=== PATIENT | female | born 1940 | race African-American/Black ===

== ENCOUNTER 2016-04-14 22:11 | Emergency (ER) | payer OTHER, MEDICARE ==
[2016-04-14 22:18] VITALS: TEMP 97.5; BMI 25.4
--- NOTE | 2016-04-14 22:23 | PDOC ---
History of Present Illness - General Exam Limitations: No Limitations - History of Present Illness Initial Comments: 04/14/16 23:17 The patient is a 75-year-old female, with a significant past medical history of HTN, who presents to the ED with HTN who presents to the ED with elevated BP levels. Patient is currently taking metoprolol and measured her BP today to be approximately 200/100. She does report experiencing dizziness and a headache. Pt does not measure her BP regularly. She last saw her PCP about 6 months ago for BP issues and her metoprolol dosage was increased. The patient denies any fever, chills, nausea, vomiting, diarrhea, abdominal pain , shortness of breath, or chest pain. <Irma Emery - Last Filed: 04/14/16 23:19> <Irene Fatima - Last Filed: 04/15/16 03:05> - General History Source: Patient Exam Limitations: No Limitations <oTna Roman - Last Filed: 04/15/16 03:33> - General Chief Complaint: Blood Pressure Problem Stated Complaint: BP PROBLEM Time Seen by Provider: 04/14/16 22:22 Past History <Irma Emery - Last Filed: 04/14/16 23:19> <Irene Fatima - Last Filed: 04/15/16 03:05> - Past Medical History Anemia: No Asthma: No Cardiac Disorders: Yes HTN: Yes Hypercholesterolemia: Yes - Surgical History Abdominal Surgery: Yes ([facility]) Orthopedic Surgery: No - Psycho/Social/Smoking Cessation Hx Anxiety: No Suicidal Ideation: No Smoking Status: No Smoking History: Never smoked Have you smoked in the past 12 months: No Number of Cigarettes Smoked Daily: 0 Information on smoking cessation initiated: No Hx Alcohol Use: No Drug/Substance Use Hx: No Substance Use Type: None Hx Substance Use Treatment: No <Tona Roman - Last Filed: 04/15/16 03:33> - Past Medical History Allergies/Adverse Reactions: Allergies Allergy/AdvReac Type Severity Reaction Status Date / Time No Known Drug Allergies Allergy Verified 04/14/16 22:14 Home Medications: Ambulatory Orders Aspirin Coated [Ecotrin -] 81 mg PO DAILY 03/19/12 Metoprolol Tartrate [Lopressor -] 25 mg PO BID 03/19/12 Simvastatin [Zocor -] 20 mg PO HS 04/14/16 Review of Systems - Review of Systems Able to Perform ROS?: Yes Comments:: 04/14/16 23:18 GENERAL/CONSTITUTIONAL: No: fever, chills, weakness, loss of appetite. HEAD, EYES, EARS, NOSE AND THROAT: No: change in vision, ear pain, discharge, sore throat, throat swelling. CARDIOVASCULAR: No: chest pain, lightheadedness, palpitations, syncope RESPIRATORY: No: cough, shortness of breath, wheezing, hemoptysis, stridor. GASTROINTESTINAL: No: nausea, vomiting, abdominal cramping, diarrhea, rectal bleeding, constipation. GENITOURINARY: No: dysuria, hematuria, frequency, urgency, flank pain. MUSCULOSKELETAL: No: back pain, neck pain, joint pain, muscle swelling or pain SKIN AND BREASTS: No: lesions, pallor, rash or easy bruising. NEUROLOGIC: No: vertigo, paresthesias, weakness. Yes: dizziness, headache ENDOCRINE: No: unexplained weight gain or loss HEMATOLOGIC/LYMPHATIC: No: anemia, easy bleeding, swelling nodes <Irma Emery - Last Filed: 04/14/16 23:19> *Physical Exam - Vital Signs Last Vital Signs Temp Pulse Resp BP Pulse Ox 97.5 F L 74 14 197/113 97 04/14/16 22:16 04/14/16 22:16 04/14/16 22:16 04/14/16 22:16 04/14/16 22:16 - Physical Exam Comments: 04/14/16 23:18 GENERAL: The patient is in no acute distress. HEAD: Normal with no signs of trauma. EYES: PERRLA, EOMI, sclera anicteric, conjunctiva clear. ENT: Ears normal, nares patent, oropharynx clear without exudates. Moist mucous membranes. NECK: Normal range of motion, supple without lymphadenopathy, JVD, or masses. LUNGS: Breath sounds equal, clear to auscultation bilaterally. No wheezes, and no crackles. HEART:Regular rate and rhythm, normal S1 and S2 without murmur, rub or gallop. ABDOMEN: Soft, nontender, normoactive bowel sounds. No guarding, no rebound. EXTREMITIES: Normal range of motion, no edema. No clubbing or cyanosis. No erythema, or tenderness. NEUROLOGICAL: Cranial nerves II through XII grossly intact. Normal speech. No focal neurological deficits. MUSCULOSKELETAL: Back non-tender to palpation, no CVA tenderness SKIN: Warm, Dry, normal turgor, no rashes or lesions noted. <Irma Emery - Last Filed: 04/14/16 23:19> - Vital Signs Last Vital Signs Temp Pulse Resp BP Pulse Ox 97.5 F L 60 18 196/106 100 04/14/16 22:16 04/15/16 01:37 04/15/16 01:37 04/15/16 01:37 04/15/16 01:37 <Irene Fatima - Last Filed: 04/15/16 03:05> - Vital Signs Last Vital Signs Temp Pulse Resp BP Pulse Ox 97.5 F L 74 14 197/113 97 04/14/16 22:16 04/14/16 22:16 04/14/16 22:16 04/14/16 22:16 04/14/16 22:16 <Tona Roman - Last Filed: 04/15/16 03:33> Heart Score/ECG Review #1 ECG reviewed & interpreted by me at: 02:04 04/15/16 02:04 Twelve-lead EKG was performed and reviewed by me. There is normal sinus rhythm with a normal rate of 58 bpm. The axis is normal. The intervals are normal - pr: 142ms, QRS: 116ms, QTc:451ms. There are no ST elevations or depressions. T wave inversion v4- v6 <Tona Roman - Last Filed: 04/15/16 03:33> ED Treatment Course - LABORATORY CBC & Chemistry Diagram: 04/15/16 00:45 04/15/16 00:45 - ADDITIONAL ORDERS Additional order review: Laboratory Results 04/15/16 00:45 Sodium 141 Potassium 4.0 Chloride 103 Carbon Dioxide 30 Anion Gap 8 BUN 10 Creatinine 0.7 Creat Clearance w eGFR > 60 Random Glucose 113 H Calcium 8.9 Total Bilirubin 0.4 D AST 24 D ALT 25 Alkaline Phosphatase 110 D Creatine Kinase 91 Troponin I < 0.02 Total Protein 7.5 Albumin 3.7 04/15/16 00:45 RBC 4.40 MCV 88.9 MCHC 32.4 RDW 14.8 MPV 9.5 Neutrophils % 65.3 D Lymphocytes % 24.8 D Monocytes % 9.1 Eosinophils % 0.2 Basophils % 0.6 - Medications Given in the ED: ED Medications Discontinued Medications Generic Name Dose Route Start Last Admin Trade Name Shavon PRN Reason Stop Dose Admin Labetalol HCl 10 mg 04/15/16 00:09 04/15/16 01:36 Normodyne Injection - IVPUSH 04/15/16 00:10 10 mg ONCE ONE Administration <Irene Fatima - Last Filed: 04/15/16 03:05> - LABORATORY CBC & Chemistry Diagram: 04/15/16 00:45 04/15/16 00:45 <Tona Roman - Last Filed: 04/15/16 03:33> Medical Decision Making - Medical Decision Making 04/15/16 03:05 THIS IS A PRELIMINARYREPORT FROM IMAGING TAX INVESTIGATOR EXAM: CT brain without contrast IMAGES: 70 INDICATION: Hypertensive urgency. Dizziness. DATE OF SERVICE: 2016-04-15 02:45:15.0 COMPARISON: none FINDINGS: The ventricular system is midline and nondilated. Mild cortical atrophy is noted with minimal small vessel ischemic disease. 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 There is no bleed, mass, extra-axial fluid collection or mass effect. No skull fracture or skull lesion is identified. The visualized paranasal sinuses and mastoid air cells are clear. IMPRESSION: No evidence of acute pathology. THIS DOCUMENT HAS BEEN ELECTRONICALLY SIGNED <FatimaIrene - Last Filed: 04/15/16 03:05> - Medical Decision Making 04/14/16 22:23 A portion of this note was documented by scribe services under my direction. I have reviewed the details of the note, within reason, and agree with the documentation with the following case summary and management plan written by me. Nursing documentation reviewed and incorporated into medical decision making 04/15/16 00:51 this is a 75 yo F with a history of HTN who presents to the ER with a complaint of elevated BP Pt states she checked her blood pressure this afternoon after getting up from the dining room table, she noted that she was dizzy (not vertiginous) She took her blood pressure and noted that it was elevated No chest pain no palpitations No shortness of breath No focal weakness or numbness Pt does not often check her blood pressure so is not sure of her range Typically she take Metoprolol 50mg in the morning and 25 in the evening She took an additional dose of metoprolol this evening 04/15/16 00:56 BP 190s-200s HR nml Will evaluate labs Will do CT head Will re assess 04/15/16 01:25 04/15/16 03:30 Laboratory Tests 04/15/16 04/15/16 00:45 00:45 WBC 4.2 D Hgb 12.7 Hct 39.1 Plt Count 164 Neutrophils % 65.3 D Lymphocytes % 24.8 D BUN 10 Creatinine 0.7 Random Glucose 113 H Creatine Kinase 91 Troponin I < 0.02 Pt remains hypertensive s/p Labetolol Pt CT performed Pt signed out to Dr Fatima pending improved BP PMD Fresnetta if pt needs to be admitted clinical impression: hypertension <Tona Roman - Last Filed: 04/15/16 03:33> *DC/Admit/Observation/Transfer - Attestations Scribe Attestion: 04/14/16 23:19 Documentation prepared by Irma Emery, acting as medical and scientific illustrator for Tona Roman MD. <Irma Emery - Last Filed: 04/14/16 23:19> <Irene Fatima - Last Filed: 04/15/16 03:05> - Discharge Dispostion Admit: No <Tona Roman - Last Filed: 04/15/16 03:33> Diagnosis at time of Disposition: Hypertensive urgency - Discharge Dispostion Condition at time of disposition: Stable - Patient Instructions Printed Discharge Instructions: DI for High Blood Pressure, How to Monitor Your Blood Pressure at Home Additional Instructions: Sahil Thank you for coming in to the ER today Please take medications as prescribed you must follow up with your primary care physician in 1-2 business days Return to the Er for any other concerns or complaints
[2016-04-15] MEDS ORDERED: LABETALOL HCL 5 MG/1 ML (100MG/20 ML VIAL) IVPUSH ONE (00:09)
[2016-04-15] MEDS ORDERED: LABETALOL HCL 5 MG/1 ML (200MG/40ML VIAL) IVPB ONE (01:31)
[2016-04-15 01:39] VITALS: PULSE 60
[2016-04-15 01:58] LABS: BASOPHIL 0.6 % (0-2.0); EOSINOPHIL 0.2 % (0-4.5); MCH 28.8 pg (25.7-33.7); MCHC 32.4 g/dl (32.0-36.0); MEAN CELL VOLUME 88.9 fl (80-96); MEAN PLT VOLUME 9.5 fl (7.5-11.1); NEUTROPHILS 65.3 % (42.8-82.8); PLATELET COUNT 164 K/MM3 (134-434); RDW 14.8 % (11.6-15.6); WHITE BLOOD COUNT 4.2 K/mm3 (4.0-10.0)
[2016-04-15 02:52] LABS: ALBUMIN 3.7 g/dl (3.4-5.0); ANION GAP 8 (8-16); CALCIUM 8.9 mg/dL (8.5-10.1); CO2 30 mmol/L (21-32); CREATININE 0.7 mg/dL (0.55-1.02); GLUCOSE,RANDOM 113 mg/dL (74-106); SGOT/AST 24 U/L (15-37); SGPT/ALT 25 U/L (12-78)
[2016-04-15 02:56] LABS: ALK PHOS 110 U/L (45-117); BILIRUBIN,TOTAL 0.4 mg/dL (0.2-1.0); TOT PROT 7.5 g/dl (6.4-8.2); TROPONIN I < 0.02 ng/ml (0.00-0.05)
[2016-04-15] MEDS ORDERED: VALSARTAN 80 MG TABLET (UD) PO ONE (03:02)
[2016-04-15] MEDS ORDERED: VALSARTAN 80 MG TABLET (UD) ONE (03:42)
[2016-04-15 03:48] VITALS: BP 176/101
--- NOTE | 2016-04-16 12:20 | EKG ---
Test Reason : Blood Pressure : / mmHG Vent. Rate : 058 BPM Atrial Rate : 058 BPM P-R Int : 142 ms QRS Dur : 116 ms QT Int : 460 ms P-R-T Axes : 056 017 131 degrees QTc Int : 451 ms SINUS BRADYCARDIA POSSIBLE LEFT ATRIAL ENLARGEMENT LEFT VENTRICULAR HYPERTROPHY WITH QRS WIDENING AND REPOLARIZATION ABNORMALITY ABNORMAL ECG WHEN COMPARED WITH ECG OF 25-JAN-2013 09:07, RIGHT BUNDLE BRANCH BLOCK IS NO LONGER PRESENT Confirmed by KODAK JOHNSON MD ([id number]) on 04/16/2016 12:19:43 PM Referred By: Confirmed By:KODAK JOHNSON MD
== END 2016-04-15 04:28 | disposition home or self-care (01) ==
LOC: JER 22:11
PROC: 3E033GC Introduction of Other Therapeutic Substance into Peripheral Vein, Percutaneous Approach (ICD-10-PCS; principal; 2016-04-14)
DX: I16.0 Hypertensive urgency (principal)
CPT/HCPCS: 36415; 70450-TC; 80053; 82550; 84484; 85025; 93005; 93010; 96374; 99283-25

== ENCOUNTER 2017-12-04 18:03 | Emergency (ER) | payer OTHER, MEDICARE ==
[2017-12-04 18:11] VITALS: TEMP 98.4; BMI 24.4
--- NOTE | 2017-12-04 18:16 | PDOC ---
Rapid Medical Evaluation Chief Complaint: Chest Pain Time Seen by Provider: 12/04/17 18:09 Medical Evaluation: Allergies Allergy/AdvReac Type Severity Reaction Status Date / Time No Known Drug Allergies Allergy Verified 10/01/17 09:52 12/04/17 18:09 I have performed a brief in-person evaluation of this patient. The patient presents with a chief complaint of:intermittent chest pain to the left arm all day. Pt has history of same. negative stress test in the past by . Pt took one BASA this am and 2 tylenol. Pertinent physical exam findings:none I have ordered the following:EKG, cbc , cmet, trop, cpk The patient will proceed to the ED for further evaluation. 12/04/17 18:12
[2017-12-04 19:45] LABS: HEMATOCRIT 36.7 % (32.4-45.2); HEMOGLOBIN 11.8 GM/dL (10.7-15.3); MCHC 32.2 g/dl (32.0-36.0); MEAN PLT VOLUME 10.3 fl (7.5-11.1); PLATELET COUNT 163 K/MM3 (134-434); RBC 4.22 M/mm3 (3.60-5.2); RDW 15.1 % (11.6-15.6); WHITE BLOOD COUNT 4.1 K/mm3 (4.0-10.0)
[2017-12-04] MEDS ORDERED: ASPIRIN 81 MG CHEWABLE TABLETS PO ONE (19:52)
[2017-12-04] MEDS ORDERED: ASPIRIN 81 MG CHEWABLE TABLETS ONE (19:59)
--- NOTE | 2017-12-04 20:19 | PDOC ---
History of Present Illness - General Chief Complaint: Chest Pain Stated Complaint: CHEST PAIN Time Seen by Provider: 12/04/17 18:09 History Source: Patient - History of Present Illness Initial Comments: 12/04/17 20:00 77 year old female c/o left sided chest pain radiating to left arm for one day. patient reports slight relief in pain after tylenol however pain persisted after dose. denies diaphoresis, nausea, vomiting, dizziness, abdominal pain, vomiting, fever. . Past History - Past Medical History Allergies/Adverse Reactions: Allergies Allergy/AdvReac Type Severity Reaction Status Date / Time No Known Drug Allergies Allergy Verified 12/04/17 18:11 Home Medications: Ambulatory Orders Aspirin Coated [Ecotrin -] 81 mg PO DAILY 03/19/12 Metoprolol Tartrate [Lopressor -] 25 mg PO BID 03/19/12 Simvastatin [Zocor -] 20 mg PO HS 04/14/16 Anemia: No Asthma: No Cancer: Yes (Endometrial 2012) Cardiac Disorders: Yes COPD: No CHF: No HTN: Yes Hypercholesterolemia: Yes - Surgical History Abdominal Surgery: Yes ([facility]) Orthopedic Surgery: No - Suicide/Smoking/Psychosocial Hx Smoking Status: No Smoking History: Never smoked Have you smoked in the past 12 months: No Number of Cigarettes Smoked Daily: 0 Information on smoking cessation initiated: Yes Hx Alcohol Use: No Drug/Substance Use Hx: No Substance Use Type: None Hx Substance Use Treatment: No Review of Systems - Review of Systems Able to Perform ROS?: Yes Is the patient limited Hungarian proficient: No Constitutional: No: Symptoms Reported, See HPI, Chills, Diaphoresis, Fever, Loss of Appetite, Malaise, Night Sweats, Weakness, Weight Stable, Unintentional Wgt. Loss, Unexplained wgt Loss, Other HEENTM: No: Symptoms Reported, See HPI, Eye Pain, Blurred Vision, Tearing, Recent change in vision, Double Vision, Cataracts, Ear Pain, Ocular Prothesis, Ear Discharge, Nose Pain, Nose Congestion, Tinnitus, Nose Bleeding, Hearing Loss , Throat Pain, Throat Swelling, Mouth Pain, Dental Problems, Difficulty Swallowing, Mouth Swelling, Other Respiratory: No: Symptoms reported, See HPI, Cough, Orthopnea, Shortness of Breath, SOB with Exertion, SOB at Rest, Stridor, Wheezing, Productive cough, Hemoptysis, Other Cardiac (ROS): Yes: Chest Pain. No: Symptoms Reported, See HPI, Edema, Irregular Heart Rate, Lightheadedness, Palpitations, Syncope, Chest Tightness, Other ABD/GI: No: Symptoms Reported, See HPI, Abdominal Distended, Abd. Pain w/ defecation, Blood Streaked Bowels, Constipated, Diarrhea, Difficulty Swallowing , Nausea, Poor Appetite, Poor Fluid Intake, Rectal Bleeding, Vomiting, Indigestion, Abdominal cramping, Tarry Stools, Other *Physical Exam - Vital Signs Last Vital Signs Temp Pulse Resp BP Pulse Ox 98.4 F 75 17 161/80 98 12/04/17 18:09 12/04/17 18:09 12/04/17 18:09 12/04/17 18:09 12/04/17 18:09 - Physical Exam General Appearance: Yes: Appropriately Dressed Respiratory/Chest: positive: Lungs Clear, Normal Breath Sounds Cardiovascular: positive: Regular Rhythm, Regular Rate Gastrointestinal/Abdominal: positive: Normal Bowel Sounds, Soft Extremity: positive: Normal Capillary Refill, Normal Inspection, Normal Range of Motion Integumentary: positive: Normal Color, Dry, Warm Neurologic: positive: Fully Oriented, Alert, Normal Mood/Affect ED Treatment Course - LABORATORY CBC & Chemistry Diagram: 12/04/17 19:29 12/04/17 19:29 - ADDITIONAL ORDERS Additional order review: 12/04/17 19:29 RBC 4.22 MCV 87.0 MCHC 32.2 RDW 15.1 MPV 10.3 - RADIOLOGY Radiology Studies Ordered: Category Date Time Status CHEST PA & LAT [RAD] Stat Radiology 12/04/17 19:52 Ordered Medical Decision Making - Medical Decision Making 12/04/17 22:[address] gill at bedside. request discharge to home. patient to follow up with Dr. Elias in the morning in the office. *DC/Admit/Observation/Transfer Diagnosis at time of Disposition: Chest pain at rest - Discharge Dispostion Disposition: HOME - Referrals Referrals: Lauri Elias [Primary Care Provider] - - Patient Instructions Printed Discharge Instructions: DI for Chest Pain Additional Instructions: please follow up with Dr. Elias tomorrow. return to the ER for any worsening symptoms. - Post Discharge Activity
[2017-12-04 21:33] LABS: ALBUMIN 3.6 g/dl (3.4-5.0); ALK PHOS 103 U/L (45-117); ANION GAP 8 MMOL/L (8-16); BILIRUBIN,TOTAL 0.3 mg/dL (0.2-1); BLOOD UREA NITROGEN 12 mg/dL (7-18); CALCIUM 8.8 mg/dL (8.5-10.1); CHLORIDE 107 mmol/L (98-107); CO2 27 mmol/L (21-32); CREATININE 0.8 mg/dL (0.55-1.3); GLUCOSE,RANDOM 94 mg/dL (74-106); POTASSIUM 4.6 mmol/L (3.5-5.1); SGOT/AST 23 U/L (15-37); SGPT/ALT 38 U/L (13-61); SODIUM 142 mmol/L (136-145); TOT PROT 7.7 g/dl (6.4-8.2)
--- NOTE | 2017-12-04 23:30 | PN ---
Progress Note (short form) - Note Progress Note: Patioent seen an dexamined in ER at bed side Case reviewed with CAR CARDER 77 year old female reports episode of chest pain described as stabbing / at time included left arm / no diaphoresis / N /V/ epigastric discomfort. Pain is non radiating / not associated with meals or activity. Pateint was seen by Cardio approx 2 weeks ago, work up at that time -echo / stress/ ekg all with out significant changes and negative for ischemia. Patient was examined at ER. At time of exam pain free - no treatment was given for pain relieve Chest pain not reproducible neck supple heart S1.S2 lungs clear bilat abd soft non tender CBC, BMP 12/04/17 19:29 12/04/17 19:29 Troponin, BNP 12/04/17 19:29 Troponin I < 0.02 assmt Atypical chest pain doubt cardiac in origin - OK to d/c patient home She will follow up at offic ein am -- repaeat EKG in am will also recommend cardiac follow up and consider GI work up for pain Patient dicharged for ER
[2017-12-04 23:32] VITALS: BP 142/62; PULSE 66
--- NOTE | 2017-12-05 22:02 | EKG ---
Test Reason : Blood Pressure : / mmHG Vent. Rate : 067 BPM Atrial Rate : 067 BPM P-R Int : 136 ms QRS Dur : 114 ms QT Int : 414 ms P-R-T Axes : 057 039 084 degrees QTc Int : 437 ms POOR DATA QUALITY, INTERPRETATION MAY BE ADVERSELY AFFECTED NORMAL SINUS RHYTHM POSSIBLE LEFT ATRIAL ENLARGEMENT INCOMPLETE RIGHT BUNDLE BRANCH BLOCK LEFT VENTRICULAR HYPERTROPHY WITH REPOLARIZATION ABNORMALITY ABNORMAL ECG WHEN COMPARED WITH ECG OF 01-OCT-2017 10:34, PREMATURE ATRIAL COMPLEXES ARE NO LONGER PRESENT Confirmed by CARRIE SINGH MD ([id number]) on 12/05/2017 10:02:46 PM Referred By: Confirmed By:CARRIE SINGH MD
== END 2017-12-04 23:32 | disposition home or self-care (01) ==
LOC: JER 18:03
DX: R07.9 Chest pain, unspecified (principal); I10 Essential (primary) hypertension; E78.00 Pure hypercholesterolemia, unspecified; Z85.44 Personal history of malignant neoplasm of other female genital organs
CPT/HCPCS: 36415; 71046-TC-FY; 80053; 82550; 84484; 85027; 93005; 93010; 99283-25

== ENCOUNTER 2018-04-11 07:17 | Observation (INO) | payer OTHER, MEDICARE ==
--- NOTE | 2018-04-11 07:43 | PDOC ---
History of Present Illness - General Chief Complaint: Nausea/Vomiting Stated Complaint: HTN History Source: Patient Exam Limitations: No Limitations - History of Present Illness Initial Comments: 77 yo F with a hx of HTN, HLD, endometrial cancer s/p hysterectomy KAMI presents to the emergency department with room spinning sensation. She states she had sudden onset, lasted minutes, worsened with movement, and terminated with rest on Saturday night without previous episodes in the past. She states concurrently her blood pressure was in the SBP 210s. On , she was asymptomatic [place]. Last night at 2 am, she awoke and had room spinning sensation with her SBP at 180s and was subsequently given nitro SL. Per the patient, she denies having the following symptoms during these episodes: fever, chills, nausea, vomiting, chest pain, SOB, palpitations, ears/nose/throat pain. Denies recent URI and head trauma. Shx: hysterectomy Meds: metoprolol, simvastatin, and aspirin 81 mg Allergies: NKDA Social: Denies tobacco, alcohol, and substance abuse Past History - Past Medical History Allergies/Adverse Reactions: Allergies Allergy/AdvReac Type Severity Reaction Status Date / Time No Known Drug Allergies Allergy Verified 12/04/17 18:11 Home Medications: Ambulatory Orders Aspirin Coated [Ecotrin -] 81 mg PO DAILY 03/19/12 Metoprolol Tartrate [Lopressor -] 25 mg PO BID 03/19/12 Simvastatin [Zocor -] 20 mg PO HS 04/14/16 Anemia: No Asthma: No Cancer: Yes (Endometrial 2012) Cardiac Disorders: Yes COPD: No CHF: No HTN: Yes Hypercholesterolemia: Yes - Surgical History Abdominal Surgery: Yes ([facility]) Orthopedic Surgery: No - Suicide/Smoking/Psychosocial Hx Smoking Status: No Smoking History: Never smoked Have you smoked in the past 12 months: No Number of Cigarettes Smoked Daily: 0 Hx Alcohol Use: No Drug/Substance Use Hx: No Substance Use Type: None Hx Substance Use Treatment: No Review of Systems - Review of Systems Able to Perform ROS?: Yes Is the patient limited Cypriot proficient: No Constitutional: No: Chills, Diaphoresis, Fever, Weakness HEENTM: No: Blurred Vision, Recent change in vision, Nose Pain, Nose Congestion , Throat Pain, Mouth Pain Respiratory: No: Cough, Shortness of Breath, Hemoptysis Cardiac (ROS): No: Chest Pain, Lightheadedness, Palpitations, Syncope, Chest Tightness ABD/GI: No: Constipated, Diarrhea, Nausea, Rectal Bleeding, Vomiting, Tarry Stools : No: Burning, Dysuria, Hematuria Musculoskeletal: No: Back Pain, Joint Pain, Neck Pain Integumentary: No: Bruising, Dryness, Rash Neurological: Yes: Dizziness. No: Headache, Numbness, Tingling, Ataxia Psychiatric: No: Change in Appetite Endocrine: No: Unexplained Weight Gain Hematologic/Lymphatic: No: Anemia *Physical Exam - Physical Exam General Appearance: Yes: Nourished, Appropriately Dressed. No: Apparent Distress, Intoxicated HEENT: positive: EOMI, LEESA, Normal Voice, Symmetrical, Pharynx Normal, Hearing Grossly Normal. negative: Pale Conjunctivae, Scleral Icterus (R), Scleral Icterus (L), Muffled/Hoarse voice, Pharyngeal Erythema, Tonsillar Exudate, Tonsillar Erythema, Nasal Congestion, Rhinorrhea, Excessive drooling Neck: positive: Trachea midline, Supple. negative: Tender, Lymphadenopathy (R) , Lymphadenopathy (L), Tender lateral, Tender midline Respiratory/Chest: positive: Lungs Clear, Normal Breath Sounds. negative: Chest Tender, Respiratory Distress, Accessory Muscle Use, Crackles, Rales, Rhonchi, Stridor, Wheezing Cardiovascular: positive: Regular Rhythm, Regular Rate, S1, S2. negative: Systolic Murmur Gastrointestinal/Abdominal: positive: Normal Bowel Sounds, Flat, Soft. negative : Tender Lymphatic: negative: Adenopathy Musculoskeletal: positive: Normal Inspection. negative: CVA Tenderness, Vertebral Tenderness Extremity: positive: Normal Capillary Refill, Normal Inspection, Normal Range of Motion. negative: Tender Integumentary: positive: Normal Color, Dry, Warm Neurologic: positive: shipping specialist II-XII NML intact, Fully Oriented, Alert, Normal Mood/ Affect, Normal Response, Motor Strength 5/5, Other (positive levar hallpike exam) Heart Score/ECG Review - ECG Intrepretation Comment:: ventricular rate is 64 bpm, VA is 142 ms, QTc is 449 ms, QRS is 120 ms. NSR with RBBB. No ST elevations or depressions. ED Treatment Course - LABORATORY CBC & Chemistry Diagram: 04/12/18 06:45 04/12/18 06:45 Medical Decision Making - Medical Decision Making 77 yo F with a hx of HTN, HLD, endometrial cancer s/p hysterectomy BIBEM[facility] presents to the emergency department with room spinning sensation. Initial vitals; Initial Vital Signs Temp Pulse Resp BP Pulse Ox 98.2 F 76 16 121/78 97 04/11/18 07:20 04/11/18 07:20 04/11/18 07:20 04/11/18 07:20 04/11/18 07:20 Work up: ddx: likely peripheral vs central vertigo. patient has sudden onset, with termination of symptoms that worsen when she leans forward. will get head CT to rule out intracranial process. will order cbc, cmp, trops, ekg, and cxr, and ua. r/o infectious and metabolic disturbance Laboratory Tests 04/11/18 04/11/18 04/11/18 08:57 08:57 08:57 WBC 5.7 RBC 4.16 Hgb 12.1 Hct 36.3 MCV 87.2 MCH 29.1 MCHC 33.4 RDW 15.3 Plt Count 118 L D MPV 10.2 Absolute Neuts (auto) 4.5 Neutrophils % 79.4 D Neutrophils % (Manual) 70.7 Band Neutrophils % 4.0 Lymphocytes % 13.6 D Lymphocytes % (Manual) 11.1 Monocytes % 6.8 Monocytes % (Manual) 7 Eosinophils % 0.0 D Eosinophils % (Manual) 1.0 Basophils % 0.2 Basophils % (Manual) 0.0 Myelocytes % (Man) 1 Promyelocytes % (Man) 0 Blast Cells % (Manual) 0 Nucleated RBC % 0 Metamyelocytes 0 Hypochromia 0 Toxic Granulation 0 Dohle Bodies 0 Platelet Estimate Decreased Platelet Comment Present Polychromasia 0 Poikilocytosis 0 Basophilic Stippling 0 Anisocytosis 0 Microcytosis 0 Macrocytosis 0 Spherocytes 0 Sickle Cells 0 Target Cells 0 Tear Drop Cells 0 Ovalocytes 0 Stomatocytes 0 Helmet Cells 0 [place] Bodies 0 [place] Rings 0 [place] Cells 0 Acanthocytes (Spur) 0 Rouleaux 0 Fragmented RBCs 0 Schistocytes 0 Sodium 139 Potassium 4.0 Chloride 108 H Carbon Dioxide 25 Anion Gap 6 L BUN 13 Creatinine 0.6 Creat Clearance w eGFR > 60 Random Glucose 110 H Calcium 8.0 L Total Bilirubin 0.4 AST 15 ALT 19 Alkaline Phosphatase 95 Creatine Kinase 86 Troponin I < 0.02 Total Protein 7.0 Albumin 3.5 Urine Color Ltyellow Urine Appearance Clear Urine pH 6.0 Ur Specific Hale 1.014 Urine Protein Negative Urine Glucose (UA) Negative Urine Ketones Negative Urine Blood Negative Urine Nitrite Negative Urine Bilirubin Negative Urine Urobilinogen Negative Ur Leukocyte Esterase Negative labs within normal limits. head ct negative for acute process. cxr was negative for acute process. the patient was given 25 mg of meclizine which did not affect her vertigo. she had change in quality in vertigo which originally terminate on its own with rest is now constant. gave her 0.5 mg of ativan. patient still experiences vertigo with worsening severity. will admit the patient for intractable vertigo. Dispo: Admit *DC/Admit/Observation/Transfer Diagnosis at time of Disposition: Vertigo - Referrals - Patient Instructions - Post Discharge Activity
[2018-04-11] MEDS ORDERED: SODIUM CHLORIDE 1,000 ML IV STA (08:27)
[2018-04-11] MEDS ORDERED: MECLIZINE HCL 25 MG TABLET (FP) PO ONE (08:27)
[2018-04-11] MEDS ORDERED: MECLIZINE HCL 25 MG TABLET (FP) ONE (08:46)
[2018-04-11 09:17] LABS: BASO % 0.2 % (0-2.0); HEMATOCRIT 36.3 % (32.4-45.2); HEMOGLOBIN 12.1 GM/dL (10.7-15.3); LYMPH % 13.6 % (8-40); MCH 29.1 pg (25.7-33.7); MCHC 33.4 g/dl (32.0-36.0); MEAN CELL VOLUME 87.2 fl (80-96); MEAN PLT VOLUME 10.2 fl (7.5-11.1); MONO % 6.8 % (3.8-10.2); NEUT % 79.4 % (42.8-82.8); PLATELET COUNT 118 K/MM3 (134-434); RBC 4.16 M/mm3 (3.60-5.2); RDW 15.3 % (11.6-15.6); WHITE BLOOD COUNT 5.7 K/mm3 (4.0-10.0)
[2018-04-11 09:56] LABS: ALBUMIN 3.5 g/dl (3.4-5.0); ALK PHOS 95 U/L (45-117); ANION GAP 6 MMOL/L (8-16); BILIRUBIN,TOTAL 0.4 mg/dL (0.2-1); BLOOD UREA NITROGEN 13 mg/dL (7-18); CHLORIDE 108 mmol/L (98-107); CO2 25 mmol/L (21-32); CREATININE 0.6 mg/dL (0.55-1.3); GLUCOSE,RANDOM 110 mg/dL (74-106); SGOT/AST 15 U/L (15-37); SGPT/ALT 19 U/L (13-61); SODIUM 139 mmol/L (136-145)
[2018-04-11 10:02] LABS: URINE APPEARANCE CLEAR; URINE BILIRUBIN NEGATIVE (<2.0 mg/dL); URINE COLOR LTYELLOW; URINE GLUCOSE (UA) NEGATIVE (NEGATIVE); URINE KETONE NEGATIVE (NEGATIVE); URINE LEUK ESTERASE NEGATIVE (NEGATIVE); URINE NITRITE NEGATIVE (NEGATIVE); URINE PROTEIN NEGATIVE (NEGATIVE); URINE UROBILINOGEN NEGATIVE mg/dL (0.2-1.0)
[2018-04-11 10:07] LABS: ACANTHOCYTES 0; ANISOCYTOSIS 0; HELMET CELLS 0; HOWELL-JOLLY BODIES 0; MACROCYTOSIS 0; OVALOCYTE 0; PLATELET ESTIMATE DECREASED; ROULEAU 0; SICKELED CELLS 0; TARGET CELLS 0; TEAR DROP CELLS 0; TOXIC GRANULATION 0
--- NOTE | 2018-04-11 11:16 | PDOC ---
Attending Attestation - Resident Resident Name: [place] - ED Attending Attestation I have performed the following: I have examined & evaluated the patient, The case was reviewed & discussed with the resident, I agree w/resident's findings & plan, Exceptions are as noted - HPI HPI: 04/11/18 11:16 Reviewed Residents HPI - Physicial Exam PE: 04/11/18 11:16 Reviewed Residents PE - Medical Decision Making 04/11/18 11:23 77 years old past medical history significant for hypertension hyperlipidemia endometrial cancer status post hysterectomy presents to the emergency Department with three-day history of unsteady gait and room spinning. Initially when symptomatology started on Saturday it appeared to be very positional associated with standing was alleviated by lying back down. Patient would check her blood pressure during these episodes and was noted to be elevated Over the past 2 days symptoms have been progressive persistent constant mild and associated with unsteady gait. No fever no chills no headache In the emergency department patient was treated with meclizine fluids a CAT scan was performed which was negative laboratory analysis is unremarkable Reevaluation patient still with now persistent unsteady gait and room spinning given patient's age and comorbidities we'll admit to medicine to rule out central causes of unsteadiness with neurologic consultation.
[2018-04-11] MEDS ORDERED: LORazepam 2 MG/ML SDV VIAL ONE (11:57)
[2018-04-11] MEDS ORDERED: MECLIZINE HCL 25 MG TABLET (FP) PO PRN (14:01)
--- NOTE | 2018-04-11 14:03 | HP ---
Admitting History and Physical - Primary Care Physician PCP: Chanel Jett I - Admission History Source: Patient, Family Member Limitations to Obtaining History: No Limitations - Past Medical History Cardiovascular: Yes: HTN, Hyperlipdemia Heme/Onc: Yes: Other (Endometrial Ca) - Smoking History Smoking history: Never smoked Have you smoked in the past 12 months: No Aproximately how many cigarettes per day: 0 - Alcohol/Substance Use Hx Alcohol Use: No Home Medications - Allergies Allergies/Adverse Reactions: Allergies Allergy/AdvReac Type Severity Reaction Status Date / Time No Known Drug Allergies Allergy Verified 12/04/17 18:11 - Home Medications Home Medications: Ambulatory Orders Aspirin Coated [Ecotrin -] 81 mg PO DAILY 03/19/12 Metoprolol Tartrate [Lopressor -] 25 mg PO BID 03/19/12 Simvastatin [Zocor -] 20 mg PO HS 04/14/16 Review of Systems - Review of Systems Constitutional: reports: Other (Vertigo) Eyes: reports: No Symptoms HENT: reports: Nasal Congestion Neck: reports: No Symptoms Cardiovascular: reports: No Symptoms Respiratory: reports: No Symptoms Gastrointestinal: reports: No Symptoms Genitourinary: reports: No Symptoms Breasts: reports: No Symptoms Reported Musculoskeletal: reports: Muscle Weakness Integumentary: reports: No Symptoms Neurological: reports: Syncope Endocrine: reports: No Symptoms Hematology/Lymphatic: reports: No Symptoms Psychiatric: reports: No Symptoms Physical Examination Vital Signs: Vital Signs Temperature 97.9 F 04/11/18 13:00 Pulse Rate 67 04/11/18 13:00 Respiratory Rate 18 04/11/18 13:00 Blood Pressure 158/88 04/11/18 13:00 O2 Sat by Pulse Oximetry (%) 98 04/11/18 12:04 Constitutional: Yes: Well Nourished Eyes: Yes: Conjunctiva Clear HENT: Yes: Atraumatic, Normocephalic Neck: Yes: Supple, Trachea Midline Cardiovascular: Yes: Regular Rate and Rhythm Respiratory: Yes: Regular, CTA Bilaterally Gastrointestinal: Yes: Normal Bowel Sounds, Soft ...Rectal Exam: Yes: Deferred Renal/: Yes: WNL Breast(s): Yes: WNL Musculoskeletal: Yes: Muscle Weakness Extremities: Yes: WNL Edema: No Peripheral Pulses WNL: Yes Integumentary: Yes: WNL Neurological: Yes: Alert, Oriented ...Motor Strength: WNL Psychiatric: Yes: Alert, Oriented Labs: CBC, BMP 04/11/18 08:57 04/11/18 08:57 Imaging - Results Chest X-ray: Report Reviewed Cat Scan: Report Reviewed Problem List - Problems (1) Vertigo Code(s): R42 - DIZZINESS AND GIDDINESS (2) HLD (hyperlipidemia) Code(s): E78.5 - HYPERLIPIDEMIA, UNSPECIFIED (3) HTN (hypertension) Code(s): I10 - ESSENTIAL (PRIMARY) HYPERTENSION Assessment/Plan 77 y/o female placed under observation for room spinning not responding to Meclizine and elevated BP . PMhx of HTN, Endometrial Ca and HLD.
[2018-04-11 15:44] VITALS: BMI 24.5
[2018-04-11] MEDS: ACETAMINOPHEN 325 MG TABLET (FP) PO PRN (16:49)
[2018-04-11] MEDS ORDERED: ONDANSETRON 4 MG/2 ML VIAL IVPUSH PRN (19:20)
[2018-04-11] MEDS: ATORVASTATIN CA 10 MG TABLET (FP) PO SCH (21:42)
[2018-04-11] MEDS: MECLIZINE HCL 25 MG TABLET (FP) PO SCH (21:43)
[2018-04-11] MEDS: METOPROLOL TARTRATE 25 MG TABLET (FP) PO SCH (21:43)
[2018-04-12] MEDS: MECLIZINE HCL 25 MG TABLET (FP) PO SCH ×5 (02:44→18:56)
[2018-04-12 08:25] LABS: BASO % 0.4 % (0-2.0); EOS % 0.1 % (0-4.5); HEMATOCRIT 36.9 % (32.4-45.2); HEMOGLOBIN 12.3 GM/dL (10.7-15.3); LYMPH % 35.5 % (8-40); MCH 29.6 pg (25.7-33.7); MCHC 33.4 g/dl (32.0-36.0); MEAN CELL VOLUME 88.6 fl (80-96); MEAN PLT VOLUME 10.1 fl (7.5-11.1); MONO % 10.3 % (3.8-10.2); NEUT % 53.7 % (42.8-82.8); PLATELET COUNT 115 K/MM3 (134-434); RBC 4.16 M/mm3 (3.60-5.2); RDW 15.1 % (11.6-15.6); WHITE BLOOD COUNT 2.9 K/mm3 (4.0-10.0)
[2018-04-12 09:15] LABS: CHOLESTEROL 115 mg/dL (50-200); HDL CHOLESTEROL 41 mg/dL (40-60); TRIGLYCERIDES 88 mg/dL (0-150)
[2018-04-12 09:17] LABS: ANION GAP 6 MMOL/L (8-16); BLOOD UREA NITROGEN 7 mg/dL (7-18); CALCIUM 8.2 mg/dL (8.5-10.1); CHLORIDE 109 mmol/L (98-107); CO2 28 mmol/L (21-32); CREATININE 0.7 mg/dL (0.55-1.3); GLUCOSE,RANDOM 96 mg/dL (74-106); POTASSIUM 3.7 mmol/L (3.5-5.1); SODIUM 142 mmol/L (136-145)
[2018-04-12] MEDS: METOPROLOL TARTRATE 25 MG TABLET (FP) PO SCH ×2 (11:27→22:04)
[2018-04-12] MEDS: ASPIRIN COATED 81 MG TABLET.EC PO SCH (11:27)
[2018-04-12] MEDS: ACETAMINOPHEN 325 MG TABLET (FP) PO PRN ×2 (11:30→21:15)
--- NOTE | 2018-04-12 14:42 | EKG ---
Test Reason : Blood Pressure : / mmHG Vent. Rate : 064 BPM Atrial Rate : 064 BPM P-R Int : 142 ms QRS Dur : 120 ms QT Int : 436 ms P-R-T Axes : 048 019 126 degrees QTc Int : 449 ms NORMAL SINUS RHYTHM RIGHT BUNDLE BRANCH BLOCK LEFT VENTRICULAR HYPERTROPHY WITH REPOLARIZATION ABNORMALITY ABNORMAL ECG WHEN COMPARED WITH ECG OF 04-DEC-2017 18:09, RIGHT BUNDLE BRANCH BLOCK HAS REPLACED INCOMPLETE RIGHT BUNDLE BRANCH BLOCK Confirmed by Dionte Britton MD ([id number]) on 04/12/2018 2:42:45 PM Referred By: Confirmed By:Dionte Britton MD
--- NOTE | 2018-04-12 17:36 | PN ---
Progress Note (short form) - Note Progress Note: patient sen and exmined in room family at bedside ( and both sons ) can not get out of bed room spinning she is sitting in bed and is "ok" but unable to lean forward or stand 2/2to room spinning Vital Signs Period Temp Pulse Resp BP Sys/Grubbs Pulse Ox Last 24 Hr 97.4 F-98.2 F 60-73 18-18 137-158/77-91 100 she report episodes at home associated with elevated BP also admits she skipped the evening dose Awake / alert / able to provide hx unable to stand neck supple heart s1./S2 lungs clear bilat abd soft non tender ext no edema / no calf tenderness CBC, BMP 04/12/18 06:45 04/12/18 06:45 Laboratory Last Values WBC 2.9 K/mm3 (4.0-10.0) L 04/12/18 06:45 RBC 4.16 M/mm3 (3.60-5.2) 04/12/18 06:45 Hgb 12.3 GM/dL (10.7-15.3) 04/12/18 06:45 Hct 36.9 % (32.4-45.2) 04/12/18 06:45 MCV 88.6 fl (80-96) 04/12/18 06:45 MCH 29.6 pg (25.7-33.7) 04/12/18 06:45 MCHC 33.4 g/dl (32.0-36.0) 04/12/18 06:45 RDW 15.1 % (11.6-15.6) 04/12/18 06:45 Plt Count 115 K/MM3 (134-434) L 04/12/18 06:45 MPV 10.1 fl (7.5-11.1) 04/12/18 06:45 Absolute Neuts (auto) 1.6 K/mm3 (1.5-8.0) 04/12/18 06:45 Neutrophils % 53.7 % (42.8-82.8) D 04/12/18 06:45 Neutrophils % (Manual) 70.7 % (42.8-82.8) 04/11/18 08:57 Band Neutrophils % 4.0 % 04/11/18 08:57 Lymphocytes % 35.5 % (8-40) D 04/12/18 06:45 Lymphocytes % (Manual) 11.1 % (8-40) 04/11/18 08:57 Monocytes % 10.3 % (3.8-10.2) H 04/12/18 06:45 Monocytes % (Manual) 7 % (3.8-10.2) 04/11/18 08:57 Eosinophils % 0.1 % (0-4.5) D 04/12/18 06:45 Eosinophils % (Manual) 1.0 % (0-4.5) 04/11/18 08:57 Basophils % 0.4 % (0-2.0) 04/12/18 06:45 Basophils % (Manual) 0.0 % (0-2.0) 04/11/18 08:57 Myelocytes % (Man) 1 % (0-2) 04/11/18 08:57 Promyelocytes % (Man) 0 % (0-2) 04/11/18 08:57 Blast Cells % (Manual) 0 % (0-0) 04/11/18 08:57 Nucleated RBC % 0 % (0-0) 04/12/18 06:45 Metamyelocytes 0 % (0-2) 04/11/18 08:57 Hypochromia 0 04/11/18 08:57 Toxic Granulation 0 04/11/18 08:57 Dohle Bodies 0 04/11/18 08:57 Platelet Estimate Decreased 04/11/18 08:57 Platelet Comment Present 04/11/18 08:57 Polychromasia 0 04/11/18 08:57 Poikilocytosis 0 04/11/18 08:57 Basophilic Stippling 0 04/11/18 08:57 Anisocytosis 0 04/11/18 08:57 Microcytosis 0 04/11/18 08:57 Macrocytosis 0 04/11/18 08:57 Spherocytes 0 04/11/18 08:57 Sickle Cells 0 04/11/18 08:57 Target Cells 0 04/11/18 08:57 Tear Drop Cells 0 04/11/18 08:57 Ovalocytes 0 04/11/18 08:57 Stomatocytes 0 04/11/18 08:57 Helmet Cells 0 04/11/18 08:57 [place] Bodies 0 04/11/18 08:57 Henry Rings 0 04/11/18 08:57 Jeniffer Cells 0 04/11/18 08:57 Acanthocytes (Spur) 0 04/11/18 08:57 Rouleaux 0 04/11/18 08:57 Fragmented RBCs 0 04/11/18 08:57 Schistocytes 0 04/11/18 08:57 Sodium 142 mmol/L (136-145) 04/12/18 06:45 Potassium 3.7 mmol/L (3.5-5.1) 04/12/18 06:45 Chloride 109 mmol/L (98-107) H 04/12/18 06:45 Carbon Dioxide 28 mmol/L (21-32) 04/12/18 06:45 Anion Gap 6 MMOL/L (8-16) L 04/12/18 06:45 BUN 7 mg/dL (7-18) 04/12/18 06:45 Creatinine 0.7 mg/dL (0.55-1.3) 04/12/18 06:45 Creat Clearance w eGFR > 60 (>60) 04/12/18 06:45 Random Glucose 96 mg/dL (74-106) 04/12/18 06:45 Calcium 8.2 mg/dL (8.5-10.1) L 04/12/18 06:45 Total Bilirubin 0.4 mg/dL (0.2-1) 04/11/18 08:57 AST 15 U/L (15-37) 04/11/18 08:57 ALT 19 U/L (13-61) 04/11/18 08:57 Alkaline Phosphatase 95 U/L (45-117) 04/11/18 08:57 Creatine Kinase 86 U/L (26-192) 04/11/18 08:57 Troponin I < 0.02 ng/ml (0.00-0.05) 04/11/18 08:57 Total Protein 7.0 g/dl (6.4-8.2) 04/11/18 08:57 Albumin 3.5 g/dl (3.4-5.0) 04/11/18 08:57 Triglycerides 88 mg/dL (0-150) 04/12/18 06:45 Cholesterol 115 mg/dL (50-200) 04/12/18 06:45 Total LDL Cholesterol 62 mg/dL (5-100) 04/12/18 06:45 HDL Cholesterol 41 mg/dL (40-60) 04/12/18 06:45 TSH 1.10 uIU/ml (0.358-3.74) 04/12/18 06:45 Urine Color Ltyellow 04/11/18 08:57 Urine Appearance Clear 04/11/18 08:57 Urine pH 6.0 (5.0-8.0) 04/11/18 08:57 Ur Specific [place] 1.014 (1.010-1.035) 04/11/18 08:57 Urine Protein Negative (NEGATIVE) 04/11/18 08:57 Urine Glucose (UA) Negative (NEGATIVE) 04/11/18 08:57 Urine Ketones Negative (NEGATIVE) 04/11/18 08:57 Urine Blood Negative (NEGATIVE) 04/11/18 08:57 Urine Nitrite Negative (NEGATIVE) 04/11/18 08:57 Urine Bilirubin Negative (<2.0 mg/dL) 04/11/18 08:57 Urine Urobilinogen Negative mg/dL (0.2-1.0) 04/11/18 08:57 Ur Leukocyte Esterase Negative (NEGATIVE) 04/11/18 08:57 Active Medications Acetaminophen (Tylenol -) 650 mg PO Q6H PRN PRN Reason: HEADACHE Last Admin: 04/12/18 11:30 Dose: 650 mg Aspirin (Ecotrin -) 81 mg PO DAILY [facility] Last Admin: 04/12/18 11:27 Dose: 81 mg Atorvastatin Calcium (Lipitor -) 10 mg PO HS [facility] Last Admin: 04/11/18 21:42 Dose: 10 mg Meclizine HCl (Antivert -) 25 mg PO Q6HPO [facility] Last Admin: 04/12/18 11:27 Dose: 25 mg Metoprolol Tartrate (Lopressor -) 25 mg PO BID [facility] Last Admin: 04/12/18 11:27 Dose: 25 mg Ondansetron HCl (Zofran Injection) 4 mg IVPUSH Q4H PRN PRN Reason: NAUSEA AND/OR VOMITING # Vertigo likely post viral she / family reports URI approximately 2 weeks prior to start of vertigo sx continue meclizine 25 QID tolerating PO meals well / no nausea or vomiting Carotid Doppler ordered #HTN bp well controlled on current meds -- however episodes of bradycardia to low 50's will hold BB tonight / norvasc 5 for Bp control monitor telemetry for bradycardia
[2018-04-12] MEDS ORDERED: amLODIPine BESYLATE 5 MG TABLET (FP) PO ONE (22:15)
[2018-04-12] MEDS: ATORVASTATIN CA 10 MG TABLET (FP) PO SCH (22:24)
[2018-04-13] MEDS: MECLIZINE HCL 25 MG TABLET (FP) PO SCH ×4 (03:19→17:13)
[2018-04-13 08:42] LABS: BASO % 0.3 % (0-2.0); EOS % 0.1 % (0-4.5); HEMATOCRIT 38.9 % (32.4-45.2); HEMOGLOBIN 13.1 GM/dL (10.7-15.3); LYMPH % 33.6 % (8-40); MCH 29.4 pg (25.7-33.7); MCHC 33.8 g/dl (32.0-36.0); MEAN CELL VOLUME 87.2 fl (80-96); MEAN PLT VOLUME 10.1 fl (7.5-11.1); MONO % 8.1 % (3.8-10.2); NEUT % 57.9 % (42.8-82.8); PLATELET COUNT 128 K/MM3 (134-434); RBC 4.46 M/mm3 (3.60-5.2); RDW 15.2 % (11.6-15.6); WHITE BLOOD COUNT 3.7 K/mm3 (4.0-10.0)
[2018-04-13 09:09] LABS: ANION GAP 6 MMOL/L (8-16); BLOOD UREA NITROGEN 10 mg/dL (7-18); CALCIUM 8.6 mg/dL (8.5-10.1); CHLORIDE 105 mmol/L (98-107); CO2 28 mmol/L (21-32); CREATININE 0.7 mg/dL (0.55-1.3); GLUCOSE,RANDOM 106 mg/dL (74-106); POTASSIUM 3.7 mmol/L (3.5-5.1); SODIUM 139 mmol/L (136-145)
[2018-04-13] MEDS ORDERED: PT OWN MED DRAWER 7, Y5N ONE (10:18)
[2018-04-13] MEDS: ASPIRIN COATED 81 MG TABLET.EC PO SCH (10:25)
[2018-04-13] MEDS: METOPROLOL TARTRATE 25 MG TABLET (FP) PO SCH (10:26)
[2018-04-13] MEDS: ACETAMINOPHEN 325 MG TABLET (FP) PO PRN ×2 (10:29→18:35)
--- NOTE | 2018-04-13 13:27 | EKG ---
Test Reason : Blood Pressure : / mmHG Vent. Rate : 054 BPM Atrial Rate : 054 BPM P-R Int : 132 ms QRS Dur : 120 ms QT Int : 428 ms P-R-T Axes : 034 030 107 degrees QTc Int : 405 ms SINUS BRADYCARDIA RIGHT BUNDLE BRANCH BLOCK T WAVE ABNORMALITY, CONSIDER LATERAL ISCHEMIA ABNORMAL ECG WHEN COMPARED WITH ECG OF 11-APR-2018 07:41, ST NO LONGER DEPRESSED IN ANTERIOR LEADS T WAVE INVERSION NO LONGER EVIDENT IN INFERIOR LEADS Confirmed by Dionte Britton MD ([id number]) on 04/13/2018 1:27:20 PM Referred By: Jordon MITTAL Confirmed By:Dionte Britton MD
[2018-04-13] MEDS ORDERED: amLODIPine BESYLATE 5 MG TABLET (FP) PO ONE ×2 (16:49→22:00)
--- NOTE | 2018-04-13 16:59 | PN ---
Progress Note (short form) - Note Progress Note: patient seen and examined in room family at bedside ( and older son ) able to walk to bathroom with assistance Per nurse episode of left sided chest pain with no associated sx EKG / TNI ordered and reviewed - negative Vital Signs Period Temp Pulse Resp BP Sys/Grubbs Pulse Ox Last 24 Hr 97.5 F-98.1 F 53-80 18-18 106-152/60-86 98-99 Awake / alert / able to provide hx unable to stand neck supple heart s1./S2 lungs clear bilat abd soft non tender ext no edema / no calf tenderness CBC, BMP 04/13/18 07:15 04/13/18 07:15 CBC, BMP 04/12/18 06:45 04/12/18 06:45 Active Medications Acetaminophen (Tylenol -) 650 mg PO Q6H PRN PRN Reason: HEADACHE Last Admin: 04/13/18 10:29 Dose: 650 mg Amlodipine Besylate (Norvasc -) 5 mg PO ONCE ONE Stop: 04/13/18 16:50 Aspirin (Ecotrin -) 81 mg PO DAILY [facility] Last Admin: 04/13/18 10:25 Dose: 81 mg Atorvastatin Calcium (Lipitor -) 10 mg PO HS [facility] Last Admin: 04/12/18 22:24 Dose: 10 mg Meclizine HCl (Antivert -) 25 mg PO Q6HPO [facility] Last Admin: 04/13/18 12:11 Dose: 25 mg Metoprolol Succinate (Toprol Xl -) 25 mg PO DAILY [facility] Ondansetron HCl (Zofran Injection) 4 mg IVPUSH Q4H PRN PRN Reason: NAUSEA AND/OR VOMITING # Vertigo likely post viral she / family reports URI approximately 2 weeks prior to start of vertigo sx continue meclizine 25 QID tolerating PO meals well / no nausea or vomiting Carotid Doppler neg for significant findings #HTN bp well controlled on current meds -- however episodes of bradycardia to low 50's will decrease B greg to 25 ng / day and add norvasc 5 mg q day for Bp control . continue to trend Bp and monitor telemetry # chest pain earlier today EKG -- sinus RBB TNI neg
[2018-04-13] MEDS ORDERED: DOCUSATE SODIUM 100 MG CAPSULE (FP) PO SCH (22:00)
[2018-04-13] MEDS: POLYETHYLENE GLYCOL 3350 119 GM BTL PO SCH (22:17)
[2018-04-13] MEDS: ATORVASTATIN CA 10 MG TABLET (FP) PO SCH (22:17)
[2018-04-14] MEDS: MECLIZINE HCL 25 MG TABLET (FP) PO SCH ×4 (01:14→12:28)
--- NOTE | 2018-04-14 09:10 | CONSULT ---
Consult - text type - Consultation Consultation Note: Neurology History of Present Illness - History of Present Illness Initial Comments: 77 yo F with a hx of HTN, HLD, endometrial cancer s/p hysterectomy KAMI presents to the emergency department with room spinning sensation. She stated she had sudden onset, lasted minutes, worsened with movement, and terminated with rest on Saturday night without previous episodes in the past. She states concurrently her blood pressure was in the SBP 210s. On last , [place]. Last night at 2 am, she awoke and had room spinning sensation with her SBP at 180s and was subsequently given nitro SL. Per the patient, she denies having the following symptoms during these episodes: fever, chills, nausea, vomiting, chest pain, SOB, palpitations, ears/nose/throat pain. Denies recent URI and head trauma. She completed CT head which did not show acute changes. Carotid dopplers were also without HD significantly stenosis. Advised increased hydration, is getting meclezine. Is ambulating but grabbing bedside rail for support. No ataxia. Past History - Past Medical History Allergies/Adverse Reactions: Allergies Allergy/AdvReac Type Severity Reaction Status Date / Time No Known Drug Allergies Allergy Verified 12/04/17 18:11 Home Medications: Ambulatory Orders Aspirin Coated [Ecotrin -] 81 mg PO DAILY 03/19/12 Metoprolol Tartrate [Lopressor -] 25 mg PO BID 03/19/12 Simvastatin [Zocor -] 20 mg PO HS 04/14/16 Anemia: No Asthma: No Cancer: Yes (Endometrial 2012) Cardiac Disorders: Yes COPD: No CHF: No HTN: Yes Hypercholesterolemia: Yes - Surgical History Abdominal Surgery: Yes ([facility]LEY) Orthopedic Surgery: No - Suicide/Smoking/Psychosocial Hx Smoking Status: No Smoking History: Never smoked Have you smoked in the past 12 months: No Number of Cigarettes Smoked Daily: 0 Hx Alcohol Use: No Drug/Substance Use Hx: No Substance Use Type: None Hx Substance Use Treatment: No Review of Systems - Review of Systems Able to Perform ROS?: Yes Is the patient limited [place] proficient: No Constitutional: No: Chills, Diaphoresis, Fever, Weakness HEENTM: No: Blurred Vision, Recent change in vision, Nose Pain, Nose Congestion , Throat Pain, Mouth Pain Respiratory: No: Cough, Shortness of Breath, Hemoptysis Cardiac (ROS): No: Chest Pain, Lightheadedness, Palpitations, Syncope, Chest Tightness ABD/GI: No: Constipated, Diarrhea, Nausea, Rectal Bleeding, Vomiting, Tarry Stools : No: Burning, Dysuria, Hematuria Musculoskeletal: No: Back Pain, Joint Pain, Neck Pain Integumentary: No: Bruising, Dryness, Rash Neurological: Yes: Dizziness. No: Headache, Numbness, Tingling, Ataxia Psychiatric: No: Change in Appetite Endocrine: No: Unexplained Weight Gain Hematologic/Lymphatic: No: Anemia *Physical Exam Vital Signs Period Temp Pulse Resp BP Sys/Grubbs Pulse Ox Last 24 Hr 97.5 F-98.2 F 59-80 18-18 106-153/64-86 98-98 - Physical Exam General Appearance: Yes: Nourished, Appropriately Dressed. No: Apparent Distress, Intoxicated HEENT: positive: EOMI, LEESA, Normal Voice, Symmetrical, Pharynx Normal, Hearing Grossly Normal. negative: Pale Conjunctivae, Scleral Icterus (R), Scleral Icterus (L), Muffled/Hoarse voice, Pharyngeal Erythema, Tonsillar Exudate, Tonsillar Erythema, Nasal Congestion, Rhinorrhea, Excessive drooling Neck: positive: Trachea midline, Supple. negative: Tender, Lymphadenopathy (R) , Lymphadenopathy (L), Tender lateral, Tender midline Respiratory/Chest: positive: Lungs Clear, Normal Breath Sounds. negative: Chest Tender, Respiratory Distress, Accessory Muscle Use, Crackles, Rales, Rhonchi, Stridor, Wheezing Cardiovascular: positive: Regular Rhythm, Regular Rate, S1, S2. negative: Systolic Murmur Gastrointestinal/Abdominal: positive: Normal Bowel Sounds, Flat, Soft. negative : Tender Lymphatic: negative: Adenopathy Musculoskeletal: positive: Normal Inspection. negative: CVA Tenderness, Vertebral Tenderness Extremity: positive: Normal Capillary Refill, Normal Inspection, Normal Range of Motion. negative: Tender Integumentary: positive: Normal Color, Dry, Warm Neurologic: positive: engraver copperplate II-XII NML intact, Fully Oriented, Alert, Normal Mood/ Affect, Normal Response, Motor Strength 5/5, Other (positive levar hallpike exam) CBCD WBC 3.7 K/mm3 (4.0-10.0) L 04/13/18 07:15 RBC 4.46 M/mm3 (3.60-5.2) 04/13/18 07:15 Hgb 13.1 GM/dL (10.7-15.3) 04/13/18 07:15 Hct 38.9 % (32.4-45.2) 04/13/18 07:15 MCV 87.2 fl (80-96) 04/13/18 07:15 MCHC 33.8 g/dl (32.0-36.0) 04/13/18 07:15 RDW 15.2 % (11.6-15.6) 04/13/18 07:15 Plt Count 128 K/MM3 (134-434) L 04/13/18 07:15 MPV 10.1 fl (7.5-11.1) 04/13/18 07:15 CMP Sodium 139 mmol/L (136-145) 04/13/18 07:15 Potassium 3.7 mmol/L (3.5-5.1) 04/13/18 07:15 Chloride 105 mmol/L (98-107) 04/13/18 07:15 Carbon Dioxide 28 mmol/L (21-32) 04/13/18 07:15 Anion Gap 6 MMOL/L (8-16) L 04/13/18 07:15 BUN 10 mg/dL (7-18) 04/13/18 07:15 Creatinine 0.7 mg/dL (0.55-1.3) 04/13/18 07:15 Creat Clearance w eGFR > 60 (>60) 04/13/18 07:15 Random Glucose 106 mg/dL (74-106) 04/13/18 07:15 Calcium 8.6 mg/dL (8.5-10.1) 04/13/18 07:15 Total Bilirubin 0.4 mg/dL (0.2-1) 04/11/18 08:57 AST 15 U/L (15-37) 04/11/18 08:57 ALT 19 U/L (13-61) 04/11/18 08:57 Alkaline Phosphatase 95 U/L (45-117) 04/11/18 08:57 Total Protein 7.0 g/dl (6.4-8.2) 04/11/18 08:57 Albumin 3.5 g/dl (3.4-5.0) 04/11/18 08:57 CARDIAC ENZYMES Creatine Kinase 68 U/L (26-192) 04/13/18 11:35 Troponin I < 0.02 ng/ml (0.00-0.05) 04/13/18 11:35 Medical Decision Making 77 yo F with a hx of HTN, HLD, endometrial cancer s/p hysterectomy BIBEMS presents to the emergency department with room spinning sensation. She stated she had sudden onset, lasted minutes, worsened with movement, and terminated with rest on Saturday night without previous episodes in the past. She states concurrently her blood pressure was in the SBP 210s. On last , [place]. Last night at 2 am, she awoke and had room spinning sensation with her SBP at 180s and was subsequently given nitro SL. Per the patient, she denies having the following symptoms during these episodes: fever, chills, nausea, vomiting, chest pain, SOB, palpitations, ears/nose/throat pain. Denies recent URI and head trauma. She completed CT head which did not show acute changes. Carotid dopplers were also without HD significantly stenosis. Advised increased hydration, is getting meclezine. Is ambulating but grabbing bedside rail for support. No ataxia. Discussed with PCP , plan is for discharge. Patient has improved and neurologically stable at this time.
--- NOTE | 2018-04-14 09:21 | DS ---
Physical Examination Vital Signs: Vital Signs Temperature 97.9 F 04/14/18 06:00 Pulse Rate 68 04/14/18 06:00 Respiratory Rate 18 04/14/18 06:00 Blood Pressure 112/64 04/14/18 06:00 O2 Sat by Pulse Oximetry (%) 98 04/13/18 20:00 Findings/Remarks: 77 yo F with a hx of HTN, HLD, endometrial cancer s/p hysterectomy BIBEMS presents to the emergency department with room spinning sensation. She states she had sudden onset, lasted minutes, worsened with movement, and terminated with rest on Saturday night without previous episodes in the past. She states concurrently her blood pressure was in the SBP 210s. On , she [place]. Last night at 2 am, she awoke and had room spinning sensation with her SBP at 180s and was subsequently given nitro SL. Per the patient, she denies having the following symptoms during these episodes: fever, chills, nausea, vomiting, chest pain, SOB, palpitations, ears/nose/throat pain. Denies recent URI and head trauma. # Vertigo likely post viral she / family reports URI approximately 2 weeks prior to start of vertigo sx continue meclizine 25 QID tolerating PO meals well / no nausea or vomiting Carotid Doppler neg for significant findings #HTN bp well controlled on current meds -- however episodes of bradycardia to low 50's will decrease B greg to 25 mg / day and add norvasc 5 mg q day for Bp control . continue to trend Bp and monitor telemetry -- HR in the mid60's at time of d/c with adequate Bp control, # chest pain 2 days prior to d/c EKG -- sinus RBB TNI neg patient instructed to continue bedrest for at least 3 more days -- will follow up at office within the week Bp meds adjusted and instructed to continue to monitor BP and HR instructed to continue antivert QID for 2 weeks - will re asses at that time if needs longer treatment Constitutional: Yes: Well Nourished, No Distress, Calm Eyes: Yes: Conjunctiva Clear, EOM Intact HENT: Yes: Atraumatic, Normocephalic Neck: Yes: Supple, Trachea Midline Cardiovascular: Yes: Regular Rate and Rhythm Respiratory: Yes: Regular, CTA Bilaterally Gastrointestinal: Yes: Normal Bowel Sounds, Soft ...Rectal Exam: Yes: Deferred Renal/: Yes: WNL Breast(s): Yes: WNL Musculoskeletal: Yes: WNL Extremities: Yes: WNL Edema: No Peripheral Pulses WNL: Yes Integumentary: Yes: WNL Neurological: Yes: Alert, Oriented, Unsteady Gait (needs asitance -- probably cane - patient declines, feels she would not be able to use appropriately and would likely "fall" trying to use it - instructed to do bedsrest for following 3 days and check in with office) ...Motor Strength: WNL Psychiatric: Yes: Alert, Oriented Labs: CBC, BMP 04/13/18 07:15 04/13/18 07:15 Discharge Summary Reason For Visit: VERTIGO Current Active Problems Vertigo (Acute) hypertension bradyarrhythmia - Instructions Referrals: Lauri Elias [Primary Care Provider] - Disposition: HOME - Home Medications Comprehensive Discharge Medication List: Ambulatory Orders Aspirin Coated [Ecotrin -] 81 mg PO DAILY 03/19/12 metoprolol succinate 25 mg q day Norvasc 5 mg PO q day Simvastatin [Zocor -] 20 mg PO HS 04/14/16
[2018-04-14] MEDS ORDERED: metoPROLOL SUCCINATE 25 MG TAB.SR.24H (FP) PO SCH (10:00)
[2018-04-14] MEDS: ASPIRIN COATED 81 MG TABLET.EC PO SCH (11:13)
[2018-04-14] MEDS: POLYETHYLENE GLYCOL 3350 119 GM BTL PO SCH (11:14)
[2018-04-14 11:18] VITALS: TEMP 98
[2018-04-14] MEDS: ACETAMINOPHEN 325 MG TABLET (FP) PO PRN (12:27)
[2018-04-14 12:31] VITALS: BP 133/85; PULSE 70
== END 2018-04-14 13:40 | disposition home or self-care (01) ==
LOC: JER 07:17 → UNDOADMOB 10:43 → JERBED 10:43 → INTOOBSV 12:28 → OBSVTOIN 12:28 → JERBED 12:33 → J5S 12:50 → JERBED 12:50 → J5S 12:50 → UNDODISOB 04-14 13:40
PROVIDERS: ADMIT Family Medicine; ATTEND Family Medicine
PROC: 3E033GC Introduction of Other Therapeutic Substance into Peripheral Vein, Percutaneous Approach (ICD-10-PCS; principal; 2018-04-11)
PROC: 3E0337Z Introduction of Electrolytic and Water Balance Substance into Peripheral Vein, Percutaneous Approach (ICD-10-PCS; 2018-04-11)
DX: R42 Dizziness and giddiness (principal); I10 Essential (primary) hypertension; E78.5 Hyperlipidemia, unspecified; R07.9 Chest pain, unspecified; Z85.42 Personal history of malignant neoplasm of other parts of uterus; Z90.710 Acquired absence of both cervix and uterus; Z79.82 Long term (current) use of aspirin
CPT/HCPCS: 36415; 70450-TC; 71045-TC-FY; 80048; 80053; 80061; 81003; 82550; 83721; 84443; 84484; 85025; 93005; 93010; 93880-TC; 96361; 96374; 99282-25; G0378; J7030

== ENCOUNTER 2018-10-03 00:49 | Emergency (ER) | payer OTHER, MEDICARE ==
--- NOTE | 2018-10-03 02:10 | PDOC ---
History of Present Illness - General Chief Complaint: Lightheaded Stated Complaint: DIZZINESS Time Seen by Provider: 10/03/18 02:09 History Source: Patient, Family Exam Limitations: No Limitations - History of Present Illness Initial Comments: 10/03/18 02:32 77 yo woman w/ PMH vertigo, HTN, HLD, endometrial cancer s/p hysterectomy presenting with presyncope just after midnight (2 hours ago). She states she had sudden onset of lightheadeness [place], told her "I am going to pass out" before leaning on him and a nearby car. The episode terminated with rest. She states her blood pressure has been well controlled in the SBP 120s. During interview in the ED her SBP is 160- 170s. Pt denies fever, chills, nausea, vomiting, chest pain, SOB, palpitations, ears/nose/throat pain. Denies recent URI and head trauma. Normal BMs, no urinary symptoms, no cough, no pain. Follows with cardiology - reports recent stress test and ECHO. Medication compliant. PMH: as above PSH: hysterectomy Meds: metoprolol, simvastatin, and aspirin 81 mg Allergies: NKDA Social: Denies tobacco, alcohol, and substance abuse Past History - Travel Traveled outside of the country in the last 30 days: No Close contact w/someone who was outside of country & ill: No - Past Medical History Allergies/Adverse Reactions: Allergies Allergy/AdvReac Type Severity Reaction Status Date / Time No Known Drug Allergies Allergy Verified 10/03/18 01:06 Home Medications: Ambulatory Orders Aspirin Coated [Ecotrin -] 81 mg PO DAILY 03/19/12 Simvastatin [Zocor -] 20 mg PO HS 04/14/16 Acetaminophen [Tylenol .Regular Strength -] 650 mg PO Q6H PRN tablet 04/14/18 Aspirin Coated [Ecotrin -] 81 mg PO DAILY tablet.ec 04/14/18 Docusate Sodium [Colace -] 300 mg PO HS capsule 04/14/18 Meclizine HCl [Antivert -] 25 mg PO Q6HPO 30 Days #120 tablet 04/14/18 Metoprolol Succinate [Toprol XL -] 25 mg PO DAILY 30 Days #30 tab.sr.24h Polyethylene Glycol 3350 [Miralax 119 gm Btl -] 17 gm PO BID bottle 04/14/18 Anemia: No Asthma: No Cancer: Yes (Endometrial 2013) Cardiac Disorders: Yes COPD: No CHF: No HTN: Yes Hypercholesterolemia: Yes - Surgical History Abdominal Surgery: Yes ([facility]) Orthopedic Surgery: No - Suicide/Smoking/Psychosocial Hx Smoking Status: No Smoking History: Never smoked Have you smoked in the past 12 months: No Number of Cigarettes Smoked Daily: 0 Information on smoking cessation initiated: No Hx Alcohol Use: No Drug/Substance Use Hx: No Substance Use Type: None Hx Substance Use Treatment: No Review of Systems - Review of Systems Able to Perform ROS?: Yes Is the patient limited [place] proficient: No Constitutional: No: Chills, Fever, Loss of Appetite, Weakness HEENTM: No: Eye Pain, Blurred Vision, Recent change in vision, Double Vision Respiratory: No: Cough, Shortness of Breath, Wheezing, Productive cough Cardiac (ROS): No: Chest Pain, Irregular Heart Rate, Palpitations, Syncope, Chest Tightness ABD/GI: No: Symptoms Reported, Abdominal Distended, Abd. Pain w/ defecation, Blood Streaked Bowels, Constipated, Diarrhea, Nausea, Vomiting : No: Symptoms Reported, Burning, Dysuria, Discharge, Frequency, Flank Pain, Hematuria, Incontinence Musculoskeletal: No: Symptoms Reported Integumentary: No: Symptoms Reported Neurological: Yes: See HPI All Other Systems: Reviewed and Negative *Physical Exam - Vital Signs Last Vital Signs Temp Pulse Resp BP Pulse Ox 97.7 F 56 L 18 174/96 H 99 10/03/18 01:06 10/03/18 01:06 10/03/18 01:06 10/03/18 01:06 10/03/18 01:06 - Physical Exam Comments: 10/03/18 02:39 Vitals reviewed, notable for hypertension Gen: elderly woman, sitting upright in bed HEENT: normal morphologies, atraumatic, MMM, EOMI CV: RRR, adventitious heart sound appreciated Pulm: CTABL, normal WOB, no wheezes / rales / rhonchi Abd: soft, nontender, nondistended Pulses: 2+ radial, DP Ext: cool, no clubbing / cyanosis / edema Neuro: CN grossly intact, no nystagmus, MAEE ED Treatment Course - LABORATORY CBC & Chemistry Diagram: 10/03/18 03:13 10/03/18 03:13 Medical Decision Making - Medical Decision Making 10/03/18 02:45 77 yo woman w/ PMH vertigo, HTN, HLD, endometrial cancer s/p hysterectomy presenting with presyncope just after midnight (2 hours ago). Concerning for r/ o ACS, possible arrhythmia, neurogenic causes, hypovolemia, less likely PE (but cannot PERC out), history not convincing for dissection. Pt with good followup with cardiology. May benefit from a repeat holter monitor to access possible arrhythmia. -CBC, CMP, PT/ING -EKG, CXR -Cardiac Profile 10/03/18 04:39 -Labs unremarkable, EKG with baseline RBBB morphologies, no changes from prior -CXR unremarkable -Pt endorses feeling much better after IVF -Endorses some residual vertigo similar to baseline symptoms -Pt feels comfortable and would like to return home Dispo: home *DC/Admit/Observation/Transfer Diagnosis at time of Disposition: Lightheadedness - Discharge Dispostion Disposition: HOME Condition at time of disposition: Good Decision to Admit order: No - Referrals - Patient Instructions Additional Instructions: You were evaluated in the ED for presyncope / lightheadedness. Please follow up with your director transition in the next week for further evaluation. If you experience chest pain, shortness of breath, loss of consciousness, or other new or concerning symptoms please seek emergency medical care. - Post Discharge Activity
[2018-10-03 03:05] VITALS: BP 155/91; PULSE 51; TEMP 97.7; BMI 23.2
[2018-10-03] MEDS ORDERED: SODIUM CHLORIDE 1,000 ML IV STA (03:07)
[2018-10-03 03:24] LABS: BASO % 0.7 % (0-2.0); EOS % 0.1 % (0-4.5); HEMATOCRIT 39.8 % (32.4-45.2); LYMPH % 27.9 % (8-40); MCH 29.4 pg (25.7-33.7); MCHC 32.8 g/dl (32.0-36.0); MEAN CELL VOLUME 89.6 fl (80-96); MONO % 6.9 % (3.8-10.2); NEUT % 64.4 % (42.8-82.8); PLATELET COUNT 127 K/MM3 (134-434); RBC 4.44 M/mm3 (3.60-5.2); RDW 15.1 % (11.6-15.6); WHITE BLOOD COUNT 3.6 K/mm3 (4.0-10.0)
--- NOTE | 2018-10-03 03:38 | PDOC ---
Attending Attestation - Resident Resident Name: Simon Mathis - ED Attending Attestation I have performed the following: I have examined & evaluated the patient, The case was reviewed & discussed with the resident, I agree w/resident's findings & plan, Exceptions are as noted - HPI HPI: 10/03/18 05:57 77F pmh ofvertigo, HTN, HLD, endometrial cancer s/p hysterectomy here after pre- syncopal episode. Pt had been gambling at a [employer], on the way out she felt faint and asked her to support her. Did not pass out, no fall, no trauma, denies palpitations, cp, sob. - Medical Decision Making 10/03/18 05:58 EKG with partial RBBB, unchanged from prior Being followed by cd manufacturing supervisor, unremarkable holter 3 months ago Denies bleeding Patient will f/u with cd manufacturing supervisor within the week Will be re-evaluated emergently if symptoms recur prior to follow up
[2018-10-03 03:52] LABS: ALBUMIN 3.7 g/dl (3.4-5.0); BILIRUBIN,TOTAL 0.3 mg/dL (0.2-1); BLOOD UREA NITROGEN 12.6 mg/dL (7-18); CALCIUM 8.6 mg/dL (8.5-10.1); CREATININE 0.7 mg/dL (0.55-1.3); POTASSIUM 4.3 mmol/L (3.5-5.1); TOT PROT 7.4 g/dl (6.4-8.2)
[2018-10-03 04:22] LABS: INR 1.08 (0.83-1.09); PROTHROMBIN TIME (PATIENT) 12.8 SEC (9.7-13.0)
[2018-10-03 11:01] LABS: ANISOCYTOSIS 0; MACROCYTOSIS 0; PLATELET ESTIMATE DECREASED
--- NOTE | 2018-10-03 14:04 | EKG ---
Test Reason : Blood Pressure : / mmHG Vent. Rate : 051 BPM Atrial Rate : 051 BPM P-R Int : 136 ms QRS Dur : 114 ms QT Int : 478 ms P-R-T Axes : 042 030 138 degrees QTc Int : 440 ms SINUS BRADYCARDIA POSSIBLE LEFT ATRIAL ENLARGEMENT INCOMPLETE RIGHT BUNDLE BRANCH BLOCK ABNORMAL ECG WHEN COMPARED WITH ECG OF 13-APR-2018 12:37, NO SIGNIFICANT CHANGE WAS FOUND Confirmed by ANDREWS LORENZANA MD ([id number]) on 10/03/2018 2:03:45 PM Referred By: Confirmed By:ANDREWS LORENZANA MD
== END 2018-10-03 05:47 | disposition home or self-care (01) ==
LOC: JER 00:49
PROC: 3E0337Z Introduction of Electrolytic and Water Balance Substance into Peripheral Vein, Percutaneous Approach (ICD-10-PCS; principal; 2018-10-03)
DX: R55 Syncope and collapse (principal); I10 Essential (primary) hypertension; E78.00 Pure hypercholesterolemia, unspecified; Z85.89 Personal history of malignant neoplasm of other organs and systems; Z90.79 Acquired absence of other genital organ(s)
CPT/HCPCS: 36415; 80053; 82550; 84484; 85025; 85610; 93005; 93010; 96360; 99284-25; J7030

== ENCOUNTER 2020-05-25 13:50 | Emergency (ER) | payer OTHER, MEDICARE ==
[2020-05-25 14:07] VITALS: TEMP 97.9; BMI 25.2
[2020-05-25 15:14] LABS: BASO % 0.9 % (0-2.0); EOS % 0.1 % (0-4.5); HEMATOCRIT 37.1 % (32.4-45.2); HEMOGLOBIN 12.4 GM/dl (10.7-15.3); LYMPH % 34.6 % (8-40); MCH 29.6 pg (25.7-33.7); MCHC 33.5 g/dl (32.0-36.0); MEAN CELL VOLUME 88.3 fl (80-96); MONO % 14.7 % (3.8-10.2); NEUT % 49.7 % (42.8-82.8); PLATELET COUNT 181 K/MM3 (134-434); RDW 12.6 % (11.6-15.6); WHITE BLOOD COUNT 3.5 K/mm3 (4.0-10.8)
[2020-05-25 15:29] LABS: ALBUMIN 3.7 g/dl (3.4-5.0); BILIRUBIN,TOTAL 0.6 mg/dl (0.2-1); CALCIUM 8.6 mg/dl (8.5-10); CREATININE 0.7 mg/dl (0.55-1.3); POTASSIUM 3.2 mmol/L (3.5-5.1); TOT PROT 7.4 g/dl (6.4-8.2)
[2020-05-25 15:57] LABS: EPITHELIAL CELLS MODERATE /hpf; URINE MUCUS 2+
[2020-05-25 18:17] VITALS: BP 142/83; PULSE 57
== END 2020-05-25 18:10 | disposition home or self-care (01) ==
LOC: FER 13:50
DX: R19.7 Diarrhea, unspecified (principal)
CPT/HCPCS: 36415; 74177-TC; 80053; 81003; 81015; 83690; 84484; 85025; 87086; 99284-25; Q9967

== ENCOUNTER 2020-09-07 01:15 | Inpatient (IN) | payer OTHER, MEDICARE ==
[2020-09-07] MEDS ORDERED: FAMOTIDINE 20 MG/50 ML IVPB 20 MG/50 ML MG IVPB ONE ×2 (02:47→03:16)
[2020-09-07] MEDS ORDERED: MAG HYDROX/AL HYDROX/SIMETH 30 ML UNIT-DOSE CUP PO ONE (02:47)
[2020-09-07] MEDS ORDERED: SODIUM CHLORIDE 0.9% 500 ML INFUS.BAG IV ONE (02:48)
[2020-09-07] MEDS ORDERED: ACETAMINOPHEN 1000 MG/100 ML VIAL (NON FORMULARY) IVPB ONE (02:48)
[2020-09-07] MEDS ORDERED: ONDANSETRON 4 MG/2 ML VIAL IVPUSH ONE (02:49)
[2020-09-07] MEDS ORDERED: ACETAMINOPHEN INJECTION 100 ML IVPB ONE (02:55)
[2020-09-07] MEDS ORDERED: MAG HYDROX/AL HYDROX/SIMETH 30 ML UNIT-DOSE CUP ONE (02:55)
[2020-09-07] MEDS ORDERED: ONDANSETRON 4 MG/2 ML VIAL ONE (02:56)
[2020-09-07 03:35] LABS: BASO % 1.1 % (0-2.0); EOS % 0.2 % (0-4.5); HEMATOCRIT 38.2 % (32.4-45.2); HEMOGLOBIN 12.7 GM/dL (10.7-15.3); MCH 29.6 pg (25.7-33.7); MCHC 33.3 g/dl (32.0-36.0); MEAN CELL VOLUME 88.9 fl (80-96); MEAN PLT VOLUME 9.8 fl (7.5-11.1); MONO % 3.6 % (3.8-10.2); NEUT % 72.1 % (42.8-82.8); PLATELET COUNT 122 10^3/uL (134-434); RDW 15.1 % (11.6-15.6); WHITE BLOOD COUNT 3.4 K/mm3 (4.0-10.0)
[2020-09-07 03:47] LABS: CHLORIDE 103 mmol/L (98-107); SODIUM 138 mmol/L (136-145)
[2020-09-07 03:49] LABS: CALCIUM 8.8 mg/dL (8.5-10.1)
[2020-09-07 03:50] LABS: ANION GAP 9 MMOL/L (8-16); BLOOD UREA NITROGEN 12.3 mg/dL (7-18); CO2 26 mmol/L (21-32); GLUCOSE,RANDOM 132 mg/dL (74-106); LIPASE 129 U/L (73-393)
[2020-09-07 03:53] LABS: SGOT/AST 22 U/L (15-37); SGPT/ALT 20 U/L (13-61)
[2020-09-07 03:54] LABS: BILIRUBIN,TOTAL 0.6 mg/dL (0.2-1)
[2020-09-07 03:56] LABS: ALK PHOS 66 U/L (45-117)
[2020-09-07 04:02] LABS: CREATININE 0.7 mg/dL (0.55-1.3)
[2020-09-07 06:28] LABS: EPI CELLS 7 /uL (0-25.1); HYALINE CASTS 1 /uL (0-3.1); URINE APPEARANCE CLEAR; URINE BACTERIA 7 /uL (0-1359); URINE BILIRUBIN NEGATIVE (NEGATIVE); URINE COLOR YELLOW; URINE GLUCOSE (UA) NEGATIVE (NEGATIVE); URINE KETONE TRACE (NEGATIVE); URINE LEUK ESTERASE NEGATIVE (NEGATIVE); URINE NITRITE NEGATIVE (NEGATIVE); URINE PROTEIN 1+ (NEGATIVE); URINE RBC 29 /uL (0-23.9); URINE WBC 9 /uL (0-25.8)
[2020-09-07] MEDS ORDERED: D5-1/2NS+10 MEQ KCL - 10 MEQ/1,000 ML INFUS.BAG IV SCH (08:45)
[2020-09-07] MEDS ORDERED: ENOXAPARIN NA (PORCINE) 40 MG/0.4 ML DISP.SYRIN SQ ONE (08:51)
[2020-09-07] MEDS ORDERED: metoPROLOL SUCCINATE 25 MG TAB.SR.24H (FP) ONE (08:51)
[2020-09-07] MEDS: CHLORTHALIDONE 25 MG TABLET PO SCH (11:00)
[2020-09-07] MEDS: PANTOPRAZOLE SODIUM 40 MG VIAL IVPUSH SCH (11:00)
[2020-09-07] MEDS: ENOXAPARIN NA (PORCINE) 40 MG/0.4 ML DISP.SYRIN SQ SCH (11:00)
[2020-09-07] MEDS: metoPROLOL SUCCINATE 25 MG TAB.SR.24H (FP) PO SCH (11:35)
[2020-09-07] MEDS ORDERED: LIPASE/PROTEASE/AMYLASE 6,000 UNIT CAPSULE PO SCH (12:00)
[2020-09-07] MEDS ORDERED: LIPASE/PROTEASE/AMYLASE 36,000 UNIT CAPSULE PO SCH (12:00)
[2020-09-07] MEDS: D5-1/2NS+10 MEQ KCL - 10 MEQ/1,000 ML INFUS.BAG IV SCH (12:37)
[2020-09-07] MEDS ORDERED: MECLIZINE HCL 25 MG TABLET (FP) ONE (16:10)
[2020-09-07] MEDS ORDERED: PT OWN MED DRAWER 7, Y5N ONE (16:10)
[2020-09-07] MEDS: MECLIZINE HCL 25 MG TABLET (FP) PO PRN (16:11)
[2020-09-07] MEDS ORDERED: ACETAMINOPHEN 325 MG TABLET (FP) ONE (20:45)
[2020-09-07] MEDS: ACETAMINOPHEN 325 MG TABLET (FP) PO PRN (20:48)
[2020-09-07] MEDS: ATORVASTATIN CA 20 MG TABLET (FP) PO SCH (22:31)
[2020-09-07] MEDS: LIPASE/PROTEASE/AMYLASE 6,000 UNIT CAPSULE PO SCH (23:25)
[2020-09-08 08:11] VITALS: BMI 24.0
[2020-09-08 08:40] LABS: BASO % 0.6 % (0-2.0); EOS % 0.1 % (0-4.5); HEMOGLOBIN 12.3 GM/dL (10.7-15.3); LYMPH % 56.8 % (8-40); MCH 29.3 pg (25.7-33.7); MCHC 32.4 g/dl (32.0-36.0); MEAN CELL VOLUME 90.6 fl (80-96); MEAN PLT VOLUME 10.3 fl (7.5-11.1); MONO % 11.3 % (3.8-10.2); NEUT % 31.2 % (42.8-82.8); PLATELET COUNT 109 10^3/uL (134-434); RDW 15.3 % (11.6-15.6)
[2020-09-08 08:45] LABS: WHITE BLOOD COUNT 1.8 K/mm3 (4.0-10.0)
[2020-09-08] MEDS: LIPASE/PROTEASE/AMYLASE 6,000 UNIT CAPSULE PO SCH ×3 (08:46→18:27)
[2020-09-08 08:59] LABS: CALCIUM 8.2 mg/dL (8.5-10.1)
[2020-09-08 09:02] LABS: CREATININE 0.6 mg/dL (0.55-1.3)
[2020-09-08] MEDS ORDERED: metoPROLOL SUCCINATE 25 MG TAB.SR.24H (FP) ONE (09:13)
[2020-09-08] MEDS ORDERED: ENOXAPARIN NA (PORCINE) 40 MG/0.4 ML DISP.SYRIN SQ ONE (09:13)
[2020-09-08] MEDS ORDERED: PANTOPRAZOLE SODIUM 40 MG VIAL ONE (09:14)
[2020-09-08] MEDS: PANTOPRAZOLE SODIUM 40 MG VIAL IVPUSH SCH (09:33)
[2020-09-08] MEDS: metoPROLOL SUCCINATE 25 MG TAB.SR.24H (FP) PO SCH (09:33)
[2020-09-08] MEDS: ENOXAPARIN NA (PORCINE) 40 MG/0.4 ML DISP.SYRIN SQ SCH (09:33)
[2020-09-08] MEDS: CHLORTHALIDONE 25 MG TABLET PO SCH (09:49)
[2020-09-08 09:51] LABS: ANISOCYTOSIS 2+; MACROCYTOSIS 0; PLATELET ESTIMATE DECREASED
[2020-09-08 11:54] LABS: HIV INTERPRETATION NEGATIVE (NEGATIVE)
[2020-09-08] MEDS ORDERED: PT OWN MED DRAWER 7, Y5N ONE ×3 (13:21→18:11)
[2020-09-08] MEDS: D5-1/2NS+10 MEQ KCL - 10 MEQ/1,000 ML INFUS.BAG IV SCH (13:22)
[2020-09-08] MEDS ORDERED: INSULIN (NOVOLOG) ASPART 100 UNITS/ML 10ML VIAL ONE (18:09)
[2020-09-08] MEDS: ATORVASTATIN CA 20 MG TABLET (FP) PO SCH (22:00)
[2020-09-08] MEDS: MECLIZINE HCL 25 MG TABLET (FP) PO PRN (22:02)
[2020-09-08] MEDS: ACETAMINOPHEN 325 MG TABLET (FP) PO PRN (22:02)
[2020-09-09 08:13] LABS: BASO % 0.8 % (0-2.0); EOS % 0.1 % (0-4.5); HEMATOCRIT 36.1 % (32.4-45.2); HEMOGLOBIN 11.8 GM/dL (10.7-15.3); LYMPH % 59.7 % (8-40); MCH 29.3 pg (25.7-33.7); MCHC 32.6 g/dl (32.0-36.0); MEAN CELL VOLUME 89.9 fl (80-96); MEAN PLT VOLUME 9.9 fl (7.5-11.1); MONO % 11.5 % (3.8-10.2); NEUT % 27.9 % (42.8-82.8); PLATELET COUNT 125 10^3/uL (134-434); RBC 4.01 M/mm3 (3.60-5.2); RDW 15.6 % (11.6-15.6)
[2020-09-09] MEDS ORDERED: PT OWN MED DRAWER 7, Y5N ONE ×4 (08:24→16:55)
[2020-09-09 08:36] LABS: BLOOD UREA NITROGEN 6.8 mg/dL (7-18)
[2020-09-09 08:38] LABS: WHITE BLOOD COUNT 1.7 K/mm3 (4.0-10.0)
[2020-09-09 08:40] LABS: CREATININE 0.7 mg/dL (0.55-1.3)
[2020-09-09] MEDS: LIPASE/PROTEASE/AMYLASE 6,000 UNIT CAPSULE PO SCH ×3 (08:46→17:19)
[2020-09-09] MEDS: D5-1/2NS+10 MEQ KCL - 10 MEQ/1,000 ML INFUS.BAG IV SCH ×2 (08:53→14:47)
[2020-09-09] MEDS: metoPROLOL SUCCINATE 25 MG TAB.SR.24H (FP) PO SCH (09:30)
[2020-09-09] MEDS: ENOXAPARIN NA (PORCINE) 40 MG/0.4 ML DISP.SYRIN SQ SCH (09:30)
[2020-09-09] MEDS: PANTOPRAZOLE SODIUM 40 MG VIAL IVPUSH SCH (09:40)
[2020-09-09] MEDS: CHLORTHALIDONE 25 MG TABLET PO SCH (09:44)
[2020-09-09 13:50] LABS: ANISOCYTOSIS 0; MACROCYTOSIS 0; PLATELET ESTIMATE NORMAL
[2020-09-09] MEDS: ATORVASTATIN CA 20 MG TABLET (FP) PO SCH (21:09)
[2020-09-09] MEDS ORDERED: POLYETHYLENE GLYCOL (HEALTHYLAX) 3350 17 GM PACKET PO SCH (22:00)
[2020-09-10 07:37] LABS: BASO % 0.3 % (0-2.0); EOS % 0.1 % (0-4.5); HEMATOCRIT 33.5 % (32.4-45.2); HEMOGLOBIN 11.2 GM/dL (10.7-15.3); LYMPH % 27.1 % (8-40); MCH 29.9 pg (25.7-33.7); MCHC 33.3 g/dl (32.0-36.0); MEAN CELL VOLUME 89.6 fl (80-96); MEAN PLT VOLUME 9.4 fl (7.5-11.1); MONO % 13.6 % (3.8-10.2); NEUT % 58.9 % (42.8-82.8); PLATELET COUNT 114 10^3/uL (134-434); RBC 3.74 M/mm3 (3.60-5.2); RDW 15.2 % (11.6-15.6); WHITE BLOOD COUNT 3.9 K/mm3 (4.0-10.0)
[2020-09-10 08:07] LABS: IGA IMMUNOGLOBULIN 386 mg/dL (64-422); IGG QN IMMUNOGLOBULIN 1097 mg/dL (586-1602); IGM QN SERUM 33 mg/dL (26-217)
[2020-09-10] MEDS ORDERED: PT OWN MED DRAWER 7, Y5N ONE ×3 (08:47→16:35)
[2020-09-10] MEDS: LIPASE/PROTEASE/AMYLASE 6,000 UNIT CAPSULE PO SCH ×3 (08:51→16:38)
[2020-09-10] MEDS: ENOXAPARIN NA (PORCINE) 40 MG/0.4 ML DISP.SYRIN SQ SCH (09:08)
[2020-09-10] MEDS: POLYETHYLENE GLYCOL (HEALTHYLAX) 3350 17 GM PACKET PO SCH (09:08)
[2020-09-10] MEDS: CHLORTHALIDONE 25 MG TABLET PO SCH (09:08)
[2020-09-10] MEDS: metoPROLOL SUCCINATE 25 MG TAB.SR.24H (FP) PO SCH (09:08)
[2020-09-10] MEDS: PANTOPRAZOLE 40 MG TABLET PO SCH (09:10)
[2020-09-10] MEDS: D5-1/2NS+10 MEQ KCL - 10 MEQ/1,000 ML INFUS.BAG IV SCH (11:56)
[2020-09-10] MEDS: ATORVASTATIN CA 20 MG TABLET (FP) PO SCH (21:18)
[2020-09-11 06:26] LABS: BASO % 0.6 % (0-2.0); EOS % 0.1 % (0-4.5); HEMATOCRIT 33.4 % (32.4-45.2); HEMOGLOBIN 11.2 GM/dL (10.7-15.3); LYMPH % 29.6 % (8-40); MCH 29.8 pg (25.7-33.7); MCHC 33.5 g/dl (32.0-36.0); MEAN CELL VOLUME 89.2 fl (80-96); MEAN PLT VOLUME 9.5 fl (7.5-11.1); MONO % 13.1 % (3.8-10.2); NEUT % 56.6 % (42.8-82.8); PLATELET COUNT 129 10^3/uL (134-434); RBC 3.75 M/mm3 (3.60-5.2); RDW 14.9 % (11.6-15.6); WHITE BLOOD COUNT 3.6 K/mm3 (4.0-10.0)
[2020-09-11 06:33] LABS: INR 1.15 (0.83-1.09); PROTHROMBIN TIME (PATIENT) 13.8 SEC (9.7-13.0)
[2020-09-11 06:36] LABS: ACTIVATED PTT 31.4 SECONDS (25.2-36.5)
[2020-09-11] MEDS ORDERED: PT OWN MED DRAWER 7, Y5N ONE (07:48)
[2020-09-11] MEDS: LIPASE/PROTEASE/AMYLASE 6,000 UNIT CAPSULE PO SCH (08:23)
[2020-09-11] MEDS: CHLORTHALIDONE 25 MG TABLET PO SCH (09:27)
[2020-09-11] MEDS: metoPROLOL SUCCINATE 25 MG TAB.SR.24H (FP) PO SCH (09:28)
[2020-09-11] MEDS: PANTOPRAZOLE 40 MG TABLET PO SCH (09:28)
[2020-09-11] MEDS: POLYETHYLENE GLYCOL (HEALTHYLAX) 3350 17 GM PACKET PO SCH (09:29)
[2020-09-11] MEDS: ENOXAPARIN NA (PORCINE) 40 MG/0.4 ML DISP.SYRIN SQ SCH (09:29)
[2020-09-11 09:33] VITALS: BP 149/76; PULSE 61; TEMP 97.9
[2020-09-12 17:09] LABS: FREE KAPPA,SERUM 35.2 mg/L (3.3-19.4)
[2020-09-13 16:08] LABS: TOTAL PROTEIN, URINE 28.7 mg/dL (Not Estab.)
== END 2020-09-11 13:12 | disposition home or self-care (01) | DRG 439 ==
LOC: JER 01:15 → JERBED 06:54 → J4W 09-08 11:49 → J4S 09-09 14:44
PROVIDERS: ADMIT Internal Medicine; ATTEND Internal Medicine
DX: K86.81 Exocrine pancreatic insufficiency (principal); K56.7 Ileus, unspecified; K90.9 Intestinal malabsorption, unspecified; D70.9 Neutropenia, unspecified; D72.819 Decreased white blood cell count, unspecified; D69.6 Thrombocytopenia, unspecified; R19.7 Diarrhea, unspecified; I10 Essential (primary) hypertension; E78.5 Hyperlipidemia, unspecified
CPT/HCPCS: 36415; 74177-TC; 74181-TC; 80048; 80053; 81003; 82550; 82607; 82747; 82784; 83605; 83615; 83690; 83883; 84155; 84156; 84157; 84165; 84439; 84443; 84484; 85014; 85025; 85384; 85610; 85651; 85730; 86038; 86140; 86431; 87015; 87040; 87045; 87046; 87086; 87177; 87205; 87207; 87209; 87324; 87328; 87329; 87389; 87449; 88300-TC; 93005; 93010; 97116-GP; 97161-GP; 99285-25; C9803; J0131; U0003; U0005

== ENCOUNTER 2021-05-05 17:29 | Inpatient (IN) | payer OTHER, MEDICARE ==
[2021-05-05 19:57] LABS: ALBUMIN 3.6 g/dl (3.4-5.0); CALCIUM 8.7 mg/dL (8.5-10.1)
[2021-05-05 19:59] LABS: BASO % 0.3 % (0-2.0); HEMATOCRIT 35.3 % (32.4-45.2); HEMOGLOBIN 11.7 GM/dL (10.7-15.3); LYMPH % 17.5 % (8-40); MCH 28.6 pg (25.7-33.7); MCHC 33.1 g/dl (32.0-36.0); MEAN CELL VOLUME 86.3 fl (80-96); NEUT % 75.2 % (42.8-82.8); PLATELET COUNT 138 10^3/uL (134-434); RBC 4.09 M/mm3 (3.60-5.2); RDW 15.8 % (11.6-15.6); WHITE BLOOD COUNT 4.8 K/mm3 (4.0-10.0)
[2021-05-05 20:01] LABS: CREATININE 0.6 mg/dL (0.55-1.3)
[2021-05-05 20:02] LABS: TOT PROT 7.4 g/dl (6.4-8.2)
[2021-05-05 20:03] LABS: BILIRUBIN,TOTAL 0.5 mg/dL (0.2-1)
[2021-05-05 20:08] LABS: ACTIVATED PTT 35.5 SECONDS (25.2-36.5); INR 1.23 (0.83-1.09); PROTHROMBIN TIME (PATIENT) 14.2 SEC (9.7-13.0)
[2021-05-05] MEDS: PANTOPRAZOLE 40 MG TABLET PO SCH (23:20)
[2021-05-05] MEDS: ENOXAPARIN NA (PORCINE) 40 MG/0.4 ML DISP.SYRIN SQ SCH (23:20)
[2021-05-05] MEDS: ATORVASTATIN CA 20 MG TABLET (FP) PO SCH (23:20)
[2021-05-05] MEDS ORDERED: ENOXAPARIN NA (PORCINE) 40 MG/0.4 ML DISP.SYRIN SQ ONE (23:26)
[2021-05-05] MEDS ORDERED: PANTOPRAZOLE 40 MG TABLET ONE (23:26)
[2021-05-05] MEDS ORDERED: ATORVASTATIN CA 20 MG TABLET (FP) ONE (23:26)
[2021-05-05] MEDS ORDERED: MECLIZINE HCL 25 MG TABLET (FP) ONE (23:36)
[2021-05-06 02:18] VITALS: BMI 24.6
[2021-05-06] MEDS: ACETAMINOPHEN 325 MG TABLET (FP) PO PRN ×3 (02:27→22:40)
[2021-05-06 07:13] LABS: BASO % 0.1 % (0-2.0); HEMATOCRIT 31.9 % (32.4-45.2); HEMOGLOBIN 10.7 GM/dL (10.7-15.3); LYMPH % 17.6 % (8-40); MCHC 33.6 g/dl (32.0-36.0); MEAN CELL VOLUME 86.3 fl (80-96); MEAN PLT VOLUME 10.1 fl (7.5-11.1); MONO % 16.8 % (3.8-10.2); NEUT % 65.5 % (42.8-82.8); PLATELET COUNT 127 10^3/uL (134-434); RDW 15.2 % (11.6-15.6); WHITE BLOOD COUNT 4.9 K/mm3 (4.0-10.0)
[2021-05-06 07:25] LABS: CALCIUM 8.7 mg/dL (8.5-10.1)
[2021-05-06 07:26] LABS: BLOOD UREA NITROGEN 8.6 mg/dL (7-18); MAGNESIUM 1.9 mg/dL (1.8-2.4)
[2021-05-06 07:29] LABS: CREATININE 0.7 mg/dL (0.55-1.3)
[2021-05-06] MEDS: LIPASE/PROTEASE/AMYLASE 36,000 UNIT CAPSULE PO SCH ×3 (08:00→17:30)
[2021-05-06] MEDS: PANTOPRAZOLE 40 MG TABLET PO SCH (11:35)
[2021-05-06] MEDS: MECLIZINE HCL 25 MG TABLET (FP) PO PRN ×2 (11:42→22:40)
[2021-05-06] MEDS: ENOXAPARIN NA (PORCINE) 40 MG/0.4 ML DISP.SYRIN SQ SCH (11:48)
[2021-05-06] MEDS ORDERED: CHLORTHALIDONE 25 MG TABLET PO SCH ×2 (15:00→22:00)
[2021-05-06] MEDS ORDERED: LOSARTAN POTASSIUM 50 MG TABLET PO SCH (15:30)
[2021-05-06] MEDS: ASPIRIN COATED 81 MG TABLET.EC PO SCH (16:20)
[2021-05-06] MEDS: ATORVASTATIN CA 20 MG TABLET (FP) PO SCH (22:38)
[2021-05-07 08:23] VITALS: BP 126/72; PULSE 62; TEMP 98.1
[2021-05-07] MEDS: LIPASE/PROTEASE/AMYLASE 36,000 UNIT CAPSULE PO SCH ×2 (08:36→12:09)
[2021-05-07] MEDS: ASPIRIN COATED 81 MG TABLET.EC PO SCH (09:35)
[2021-05-07] MEDS: PANTOPRAZOLE 40 MG TABLET PO SCH (09:35)
[2021-05-07] MEDS: MECLIZINE HCL 25 MG TABLET (FP) PO PRN (09:42)
[2021-05-07] MEDS ORDERED: LOSARTAN POTASSIUM 50 MG TABLET PO SCH (10:00)
[2021-05-07] MEDS: ACETAMINOPHEN 325 MG TABLET (FP) PO PRN (12:49)
== END 2021-05-07 13:13 | disposition home or self-care (01) | DRG 149 ==
LOC: JER 17:29 → JERBED 18:27 → J4W 05-06 02:11
PROVIDERS: ADMIT Internal Medicine; ATTEND Internal Medicine
DX: H81.10 Benign paroxysmal vertigo, unspecified ear (principal); R26.9 Unspecified abnormalities of gait and mobility; I10 Essential (primary) hypertension; E78.5 Hyperlipidemia, unspecified; I45.10 Unspecified right bundle-branch block; D64.9 Anemia, unspecified; D69.6 Thrombocytopenia, unspecified; F03.90 Unspecified dementia, unspecified severity, without behavioral disturbance, psychotic disturbance, mood disturbance, and anxiety; I16.0 Hypertensive urgency; I25.10 Atherosclerotic heart disease of native coronary artery without angina pectoris
CPT/HCPCS: 36415; 70450-TC; 71045-TC-FY; 80048; 80053; 80061; 82550; 82607; 83036; 83735; 84484; 85025; 85610; 85730; 86850; 86900; 86901; 93005; 93010; 97116-GP; 97161-GP; 99285-25; C9803; U0003; U0005

== ENCOUNTER 2021-07-06 04:25 | Day surgery (SDC) | payer OTHER, MEDICARE ==
[2021-07-04 12:03] VITALS: BMI 21.1
[2021-07-06 13:19] VITALS: TEMP 97.5
[2021-07-06 14:05] VITALS: BP 144/69; PULSE 52
== END 2021-07-06 14:20 | disposition home or self-care (01) ==
LOC: JASU-ENDO 04:25
PROVIDERS: ATTEND Internal Medicine Gastroenterology
PROC: 0DB78ZX Excision of Stomach, Pylorus, Via Natural or Artificial Opening Endoscopic, Diagnostic (ICD-10-PCS; principal; 2021-07-06 13:00)
DX: K29.50 Unspecified chronic gastritis without bleeding (principal); K44.9 Diaphragmatic hernia without obstruction or gangrene; R63.4 Abnormal weight loss
CPT/HCPCS: 88305-TC; 88342-TC

== ENCOUNTER 2021-12-11 06:38 | Inpatient (IN) | payer OTHER, MEDICARE ==
[2021-12-11 06:58] VITALS: BMI 23.4
[2021-12-11] MEDS ORDERED: SODIUM CHLORIDE 0.9% 500 ML INFUS.BAG IV ONE (07:11)
[2021-12-11] MEDS ORDERED: FAMOTIDINE 20 MG/50 ML IVPB 20 MG/50 ML MG IVPB ONE ×2 (07:15→07:22)
[2021-12-11] MEDS: morphine CARPU-JECT 4 MG/1 ML DISP.SYRIN IVPUSH ONE ×2 (07:19→07:38)
[2021-12-11] MEDS ORDERED: morphine SULFATE 4 MG/ML VIAL ONE (07:22)
[2021-12-11] MEDS ORDERED: ACETAMINOPHEN 1000 MG/100 ML BAG IVPB ONE (07:43)
[2021-12-11 07:59] LABS: BASO % 0.3 % (0-2.0); EOS % 0.1 % (0-4.5); HEMATOCRIT 40.7 % (32.4-45.2); HEMOGLOBIN 13.1 GM/dL (10.7-15.3); LYMPH % 13.3 % (8-40); MCH 28.7 pg (25.7-33.7); MCHC 32.3 g/dl (32.0-36.0); MEAN CELL VOLUME 88.9 fl (80-96); MEAN PLT VOLUME 10.2 fl (7.5-11.1); MONO % 3.6 % (3.8-10.2); NEUT % 82.7 % (42.8-82.8); PLATELET COUNT 147 10^3/uL (134-434); RBC 4.57 M/mm3 (3.60-5.2); RDW 14.9 % (11.6-15.6); WHITE BLOOD COUNT 6.1 K/mm3 (4.0-10.0)
[2021-12-11] MEDS ORDERED: ACETAMINOPHEN INJECTION 100 ML IVPB ONE (08:03)
[2021-12-11 08:19] LABS: ALBUMIN 4.1 g/dl (3.4-5.0); BLOOD UREA NITROGEN 15.6 mg/dL (7-18); CALCIUM 9.2 mg/dL (8.5-10.1); MAGNESIUM 2.1 mg/dL (1.8-2.4)
[2021-12-11 08:23] LABS: CREATININE 0.8 mg/dL (0.55-1.3)
[2021-12-11 08:25] LABS: BILIRUBIN,TOTAL 0.4 mg/dL (0.2-1); TOT PROT 8.5 g/dl (6.4-8.2)
[2021-12-11] MEDS ORDERED: METOPROLOL TARTRATE 5 MG/5 ML VIAL IVPUSH PRN (13:46)
[2021-12-11] MEDS ORDERED: METOPROLOL TARTRATE 5 MG/5 ML VIAL ONE (15:10)
[2021-12-11] MEDS ORDERED: PANTOPRAZOLE SODIUM 40 MG VIAL ONE (15:11)
[2021-12-11] MEDS: PANTOPRAZOLE SODIUM 40 MG VIAL IVPUSH SCH (15:15)
[2021-12-11 16:25] LABS: PH,URINE 7.5 (5.0-8.0); URINE APPEARANCE CLEAR; URINE BILIRUBIN NEGATIVE (NEGATIVE); URINE COLOR YELLOW; URINE GLUCOSE (UA) NEGATIVE (NEGATIVE); URINE KETONE NEGATIVE (NEGATIVE); URINE LEUK ESTERASE NEGATIVE (NEGATIVE); URINE NITRITE NEGATIVE (NEGATIVE); URINE PROTEIN NEGATIVE (NEGATIVE); URINE UROBILINOGEN 0.2 mg/dL (0.2-1.0)
[2021-12-11] MEDS: D5-1/2NS+10 MEQ KCL - 10 MEQ/1,000 ML INFUS.BAG IV SCH (18:10)
[2021-12-11] MEDS ORDERED: METOPROLOL TARTRATE 5 MG/5 ML VIAL IVPB PRN (20:23)
[2021-12-11] MEDS ORDERED: ACETAMINOPHEN 1000 MG/100 ML BAG IVPB PRN (20:24)
[2021-12-11] MEDS: HEPARIN NA (PORCINE) 5,000 UNITS/ML 1ML VIAL SQ SCH (21:33)
[2021-12-12] MEDS: HEPARIN NA (PORCINE) 5,000 UNITS/ML 1ML VIAL SQ SCH ×3 (06:07→21:40)
[2021-12-12] MEDS: D5-1/2NS+10 MEQ KCL - 10 MEQ/1,000 ML INFUS.BAG IV SCH ×3 (06:09→17:36)
[2021-12-12] MEDS ORDERED: metoPROLOL SUCCINATE 25 MG TAB.SR.24H (FP) PO SCH (08:30)
[2021-12-12] MEDS: CHLORTHALIDONE 25 MG TABLET PO SCH (09:49)
[2021-12-12] MEDS: amLODIPine BESYLATE 2.5 MG TABLET (FP) PO SCH (09:49)
[2021-12-12] MEDS: metoPROLOL SUCCINATE 25 MG TAB.SR.24H (FP) PO SCH ×2 (09:50→21:40)
[2021-12-12] MEDS: PANTOPRAZOLE SODIUM 40 MG VIAL IVPUSH SCH (09:50)
[2021-12-12 13:02] LABS: HEMATOCRIT 43.6 % (32.4-45.2); HEMOGLOBIN 14.3 GM/dL (10.7-15.3); MCH 29.4 pg (25.7-33.7); MCHC 32.8 g/dl (32.0-36.0); MEAN CELL VOLUME 89.5 fl (80-96); MEAN PLT VOLUME 9.6 fl (7.5-11.1); RBC 4.88 M/mm3 (3.60-5.2); RDW 15.4 % (11.6-15.6); WHITE BLOOD COUNT 3.1 K/mm3 (4.0-10.0)
[2021-12-12 13:28] LABS: CALCIUM 9.2 mg/dL (8.5-10.1)
[2021-12-12 13:32] LABS: CREATININE 0.8 mg/dL (0.55-1.3)
[2021-12-12 13:37] LABS: AMYLASE 68 U/L (25-115)
[2021-12-12 13:39] LABS: LIPASE 163 U/L (73-393)
[2021-12-12 13:40] LABS: IRON SERUM 125 ug/dL (50-175)
[2021-12-12 13:41] LABS: TOTAL IRON BINDING CAPACITY 400 ug/dL (250-450)
[2021-12-12 14:47] LABS: PLATELET COUNT 132 10^3/uL (134-434)
[2021-12-12 15:23] LABS: ANISOCYTOSIS 0; MACROCYTOSIS 0
[2021-12-13] MEDS: HEPARIN NA (PORCINE) 5,000 UNITS/ML 1ML VIAL SQ SCH ×3 (06:36→21:42)
[2021-12-13] MEDS: D5-1/2NS+10 MEQ KCL - 10 MEQ/1,000 ML INFUS.BAG IV SCH (06:37)
[2021-12-13] MEDS: amLODIPine BESYLATE 2.5 MG TABLET (FP) PO SCH (09:16)
[2021-12-13] MEDS: CHLORTHALIDONE 25 MG TABLET PO SCH (09:16)
[2021-12-13] MEDS: metoPROLOL SUCCINATE 25 MG TAB.SR.24H (FP) PO SCH ×2 (09:16→21:42)
[2021-12-13] MEDS: PANTOPRAZOLE SODIUM 40 MG VIAL IVPUSH SCH (09:17)
[2021-12-13 10:13] LABS: HEMATOCRIT 41.8 % (32.4-45.2); HEMOGLOBIN 13.4 GM/dL (10.7-15.3); MCH 28.5 pg (25.7-33.7); MCHC 32.1 g/dl (32.0-36.0); MEAN CELL VOLUME 88.8 fl (80-96); MEAN PLT VOLUME 9.8 fl (7.5-11.1); PLATELET COUNT 135 10^3/uL (134-434); RBC 4.71 M/mm3 (3.60-5.2); RDW 14.9 % (11.6-15.6)
[2021-12-13 10:37] LABS: WHITE BLOOD COUNT 1.6 K/mm3 (4.0-10.0)
[2021-12-13 10:42] LABS: BLOOD UREA NITROGEN 9.7 mg/dL (7-18); CALCIUM 9.6 mg/dL (8.5-10.1)
[2021-12-13 10:45] LABS: CREATININE 0.7 mg/dL (0.55-1.3)
[2021-12-13 12:41] LABS: ANISOCYTOSIS 0; MACROCYTOSIS 0
[2021-12-13 16:54] LABS: BASO % 0.4 % (0-2.0); EOS % 0.2 % (0-4.5); HEMATOCRIT 37.4 % (32.4-45.2); HEMOGLOBIN 12.1 GM/dL (10.7-15.3); LYMPH % 55.4 % (8-40); MCH 28.6 pg (25.7-33.7); MCHC 32.4 g/dl (32.0-36.0); MEAN CELL VOLUME 88.3 fl (80-96); MEAN PLT VOLUME 9.7 fl (7.5-11.1); MONO % 13.9 % (3.8-10.2); NEUT % 30.1 % (42.8-82.8); PLATELET COUNT 137 10^3/uL (134-434); RBC 4.23 M/mm3 (3.60-5.2); RDW 14.8 % (11.6-15.6)
[2021-12-13 17:05] LABS: WHITE BLOOD COUNT 1.8 K/mm3 (4.0-10.0)
[2021-12-13 17:25] LABS: ANISOCYTOSIS 1+; MACROCYTOSIS 0
[2021-12-13 17:58] VITALS: RESP 18
[2021-12-13] MEDS ORDERED: ACETAMINOPHEN 1000 MG/100 ML BAG IVPB ONE (21:30)
[2021-12-14] MEDS: HEPARIN NA (PORCINE) 5,000 UNITS/ML 1ML VIAL SQ SCH ×2 (05:23→13:41)
[2021-12-14 05:43] VITALS: TEMP 97.8
[2021-12-14] MEDS: CHLORTHALIDONE 25 MG TABLET PO SCH (09:17)
[2021-12-14] MEDS: metoPROLOL SUCCINATE 25 MG TAB.SR.24H (FP) PO SCH (09:18)
[2021-12-14] MEDS: amLODIPine BESYLATE 2.5 MG TABLET (FP) PO SCH (09:19)
[2021-12-14] MEDS: PANTOPRAZOLE SODIUM 40 MG VIAL IVPUSH SCH (09:19)
[2021-12-14 10:41] VITALS: BP 117/58; PULSE 53
== END 2021-12-14 22:00 | disposition home or self-care (01) | DRG 390 ==
LOC: JER 06:38 → JERBED 12:31 → J6S 16:19
PROVIDERS: ADMIT Internal Medicine; ATTEND Internal Medicine
DX: K56.50 Intestinal adhesions [bands], unspecified as to partial versus complete obstruction (principal); I10 Essential (primary) hypertension; E78.5 Hyperlipidemia, unspecified; K86.89 Other specified diseases of pancreas; K83.8 Other specified diseases of biliary tract; K43.9 Ventral hernia without obstruction or gangrene
CPT/HCPCS: 36415; 71045-TC-FY; 74177-TC; 80048; 80053; 81003; 82150; 82728; 83540; 83550; 83605; 83690; 83735; 84484; 85025; 86140; 86301; 87086; 93005; 93010; 97116-GP; 97161-GP; 99285-25; C9803-CS; J1644; Q9967; U0003; U0005